=== PATIENT | male | born 1955 | race Caucasian/White ===

== ENCOUNTER 2017-06-19 09:35 | Day surgery (SDC) | payer BC ==
[~2017-06-19 09:35] MED LIST: LACTATED RINGERS 1,000 ML IV SCH; LIDOCAINE 1% 20 ML VIAL (10MG/ML) FOR IV START INTRADERMA PRN
[2017-06-19 10:17] VITALS: RESP 16; TEMP 98.4
[2017-06-19] MEDS ORDERED: PROPOFOL 10 MG/ML 20 ML VIAL IV ONE (11:03)
--- NOTE | 2017-06-19 11:34 | P.PCN ---
Date of Procedure: 06/19/17 Procedure(s) Performed: Procedure: Total colonoscopy. Preoperative diagnosis: Change in bowel habits. Postoperative diagnosis: Diverticulosis with no evidence of acute diverticulitis , strictures, polyps or cancer. Preparation: HalfLytely prep. Sedation: Was provided by anesthesia. Brief clinical history: The patient is a 61-year-old male who is scheduled for this evaluation because of change in bowel habits and caliber of his stools. He has been having worsening constipation over the last few years and recently he is describing his stools to be ribbonlike and pellet-like. His prior exam was in 2008. The patient has no other abdominal complaints, bleeding or anemia. Procedure: With the patient on his left lateral decubitus position and after informed consent and adequate sedation, the perianal area was inspected and it did not show any fissures or fistulas. There were no masses felt on digital rectal examination. The Olympus CFQ 160L video colonoscope was then inserted in the rectum in the usual fashion and advanced to the cecum. There was multiple diverticular orifices seen scattered in the sigmoid with no evidence of acute diverticulitis or strictures. The mucosa appeared healthy. No polyps or tumors were seen. I retroflexed the endoscope in the rectum before the endoscope was withdrawn. The patient tolerated the procedure well. Plan: The patient was reassured. Discussed dietary measures. He will follow up with you as planned and I recommended repeat exam in 10 years. I will be happy to see in the office if his symptoms persist.
[2017-06-19 11:55] VITALS: BP 123/80; PULSE 73
== END 2017-06-19 12:10 | disposition home or self-care (01) ==
LOC: ORWHC2ENDO 09:35
DX: K57.30 Diverticulosis of large intestine without perforation or abscess without bleeding (principal); M19.90 Unspecified osteoarthritis, unspecified site; G25.81 Restless legs syndrome; M54.9 Dorsalgia, unspecified; K21.9 Gastro-esophageal reflux disease without esophagitis; Z79.899 Other long term (current) drug therapy
CPT/HCPCS: 45378; J2704

== ENCOUNTER → 2022-06-23 | Outpatient (CLI) | payer MEDICARE ==
[2022-06-23 20:03] LABS: HCT 44.9 % (39.6-50.0); HGB 14.4 g/dL (13.0-17.0); MCH 30.7 pg (27.0-32.0); MCHC 32.1 g/dL (32.0-37.0); MCV 95.7 fL (80.0-97.0); NRBC Per 100 WBC 0 /100 WBCS (0.0-0.0); Platelet Count 232 X 10*3/uL (140-440); RBC 4.69 X 10*6/uL (4.40-5.60); RDW 12.1 % (11.5-14.5); WBC 5.23 X 10*3/uL (4.50-10.00)
[2022-06-23 20:15] LABS: African American GFR (CKD) 97.8 (60.0-200.0); Anion Gap 9.8 mmol/L (10.00-18.00); BUN/Creat Ratio 25.24 Ratio (12.00-20.00); Blood Urea Nitrogen 23.4 mg/dL (9.0-27.0); Calcium 9.3 mg/dL (8.7-10.3); Carbon Dioxide 25.4 mmol/L (20.0-27.5); Non-African American GFR(CKD) 84.4 (60.0-200.0)
== END | disposition home or self-care (01) ==
LOC: LABWHC1 10:54
PROVIDERS: ATTEND Internal Medicine Cardiovascular Disease
DX: I27.20 Pulmonary hypertension, unspecified (principal); E78.2 Mixed hyperlipidemia; R06.02 Shortness of breath
CPT/HCPCS: 36415; 80048; 84443; 85027

== ENCOUNTER → 2022-08-03 | Outpatient (CLI) | payer MEDICARE ==
--- NOTE | 2022-08-03 17:58 | XR ---
EXAMINATION TYPE: XR chest 2V DATE OF EXAM: 08/03/2022 COMPARISON: None HISTORY: 66-year-old male R06.02, abnormal EKG. TECHNIQUE: Frontal and lateral views FINDINGS: Heart normal size. Aorta and pulmonary vasculature within normal limits. There is hyperinflation with some strandy scarring or atelectasis at the lung bases. Dominant first left anterior rib and likely due to degenerative change at the costochondral junction. [facility] throughout the mid to lower thoracic s pine. IMPRESSION: COPD. Strandy atelectasis or scarring at the lung bases. Otherwise, no acute process seen.
--- NOTE | 2022-08-03 17:59 | NM ---
EXAMINATION TYPE: NM pul vent and perfuse DATE OF EXAM: 08/03/2022 CLINICAL INDICATION: Male, 66 years old with history of R06.02; TECHNIQUE: Utilizing inhalation of 66.2 mCi Tc 99m DTPA aerosol and intravenous injection of 4.0 mCi of Tc 99m MAA, ventilation and perfusion images are acquired post injection in multiple projections. FINDINGS: Normal radiotracer distribution is noted in the lungs. There is no evidence of mismatched defects. IMPRESSION: Very low probability for pulmonary embolus.
== END | disposition home or self-care (01) ==
LOC: RADNMMAIN 12:45
PROVIDERS: ATTEND Internal Medicine Cardiovascular Disease
DX: J44.9 Chronic obstructive pulmonary disease, unspecified (principal); R94.31 Abnormal electrocardiogram [ECG] [EKG]; R06.02 Shortness of breath
CPT/HCPCS: 71046; 78582; A9540; A9567

== ENCOUNTER → 2022-09-05 | Outpatient (CLI) | payer MEDICARE ==
--- NOTE | 2022-09-05 14:15 | XR ---
EXAMINATION TYPE: XR cervical spine limited DATE OF EXAM: 09/05/2022 12:42 PM INDICATION: Patient age:Male; 66 years old; Reason for study: M54.2 CERVICALGIA; COMPARISON: None TECHNIQUE: The cervical spine was imaged in frontal, lateral, and odontoid. FINDINGS: The osseous structures show normal alignment without evidence of an acute fracture. There are minimal osteophytes noted throughout the cervical spine. The intervertebral disk spaces are narrowed at mult iple levels Pedicles are intact. Soft tissues are within normal limits. The odontoid appears intact. IMPRESSION: 1. No fracture or dislocation. 2. Mild degenerative disc disease changes of the cervical spine.
== END | disposition home or self-care (01) ==
LOC: RADXRMAIN 12:26
PROVIDERS: ATTEND Family Medicine
DX: M50.30 Other cervical disc degeneration, unspecified cervical region (principal)
CPT/HCPCS: 72040

== ENCOUNTER → 2023-03-14 | Outpatient (CLI) | payer MEDICARE | END | disposition home or self-care (01) | LOC: LABWHC1 14:35 | PROVIDERS: ATTEND Family Medicine | DX: G62.9 Polyneuropathy, unspecified (principal) | CPT/HCPCS: 36415; 82747 ==

== ENCOUNTER → 2023-09-17 | Outpatient (CLI) | payer MEDICARE ==
--- NOTE | 2023-09-17 12:24 | XR ---
EXAMINATION TYPE: XR ankle limited LT DATE OF EXAM: 09/17/2023 COMPARISON: NONE HISTORY: Pain TECHNIQUE: 2 views of the left ankle are submitted for evaluation. FINDINGS: There is no evidence for fracture or dislocation. Ankle mortise is intact. Soft tissues are within normal limits. IMPRESSION: 1. No evidence for acute fracture.
== END | disposition home or self-care (01) ==
LOC: RADXRMAIN 12:03
PROVIDERS: ATTEND Family Medicine
DX: M25.572 Pain in left ankle and joints of left foot (principal)

== ENCOUNTER → 2024-01-18 | Outpatient (CLI) | payer MEDICARE ==
--- NOTE | 2024-01-18 16:06 | CT ---
EXAMINATION TYPE: CT ankle LT wo con CT DLP: 244.7 mGycm, Automated exposure control for dose reduction was used. DATE OF EXAM: 01/18/2024 3:53 PM COMPARISON: Left ankle radiograph 09/17/2023 CLINICAL INDICATION:Male, 68 years old with history of M19.072 PRIMARY OSTEOARTHRITIS, LEFT ANKLE AND FOOT; PHH, Left ankle pain since March, no injury. TECHNIQUE: Axial images were obtained of the left ankle without the use of IV contrast. Additional c oronal and sagittal reformatted images and soft tissue and bone window were obtained for review. FINDINGS: There is no evidence of fracture, subluxation, or dislocation. There is subchondral cystic infiltration with sclerosis involving the talocalcaneal junction with joint space gas. Ankle mortise is intact. No significant subchondral sclerosis or cyst cysts of the tibiotalar joint. Mild dorsal mi dfoot spurring. Small benign bone island within the calcaneus. Small plantar calcaneal enthesophytes. Mild diffuse soft tissue edema of the ankle. No focal muscular atrophy. Incidental os navicular. No radiopaque foreign body identified. Prominent venous vasculature within the soft tissues suggesting v aricose veins. IMPRESSION: 1. No acute fracture or dislocation. 2. Moderate degenerative changes of the talocalcaneal joint. 3. Mild soft tissue swelling ankle. 4. Small plantar calcaneal enthesophyte. [facility], , 01/18/2024 4:03 PM
== END | disposition home or self-care (01) ==
LOC: RADCTMAIN 15:26
PROVIDERS: ATTEND Podiatrist
DX: M19.072 Primary osteoarthritis, left ankle and foot (principal); M77.32 Calcaneal spur, left foot

== ENCOUNTER → 2024-03-24 | Outpatient (CLI) | payer MEDICARE | END | disposition home or self-care (01) | LOC: LABWHC1 11:52 | PROVIDERS: ATTEND Family Medicine | DX: E78.5 Hyperlipidemia, unspecified (principal); Q55.1 Hypoplasia of testis and scrotum | CPT/HCPCS: 36415 ==

== ENCOUNTER → 2024-05-05 | Outpatient (CLI) | payer MEDICARE ==
[2024-05-06] LABS: Alternaria alternata IgE <0.10 kU/L; Aspergillus fumagatus IgE <0.10 kU/L; Birch IgE <0.10 kU/L; Cat Epith & Dander IgE 0.66 kU/L; Cladosporian herbarum IgE <0.10 kU/L; Cockroach IgE <0.10 kU/L; Dermato. farinae IgE <0.10 kU/L; Dog Dander IgE <0.10 kU/L; Elm IgE <0.10 kU/L; Maple (Box Elder) IgE <0.10 kU/L; Oak IgE <0.10 kU/L; Ragweed,Common IgE <0.10 kU/L; Red Top (Bentgrass) IgE <0.10 kU/L
== END | disposition home or self-care (01) ==
LOC: LABWHC1 15:20
PROVIDERS: ATTEND Otolaryngology
DX: J30.89 Other allergic rhinitis (principal); B44.89 Other forms of aspergillosis
CPT/HCPCS: 36415; 82785; 86003

== ENCOUNTER → 2024-05-19 | Outpatient (CLI) | payer MEDICARE ==
--- NOTE | 2024-05-19 13:24 | CT ---
EXAMINATION TYPE: CT sinus wo con DATE OF EXAM: 05/19/2024 COMPARISON: NONE CLINICAL INDICATION: Male, 68 years old with history of J32.0 CHRONIC MAXILLARY SINUSITIS, Chronic ma xillary sinusitis., TECHNIQUE: CT scan of the sinuses performed without contrast, patient injected with mL of .(none if empty) CT DLP: 483.5 mGycm, Automated exposure control for dose reduction was used. TECHNIQUE: CT scan of the sinuses is performed without contrast, axial images are obtained, coronal r eformatted images are also reviewed. FINDINGS: The paranasal sinuses including the frontal, ethmoid, sphenoid, and maxillary sinuses bila terally are well-aerated without abnormal opacification or suspicious air-fluid levels. The ostiomea chuck complex is patent bilaterally on the coronal images. Visualized portion of mastoid air cells show no abnormal opacification. Bilateral aphakia is seen. IMPRESSION: The paranasal sinuses are clear and the ostiomeatal complex is patent bilaterally. [facility], , 05/19/2024 1:21 PM
== END | disposition home or self-care (01) ==
LOC: RADCTMAIN 11:43
PROVIDERS: ATTEND Otolaryngology
DX: J32.0 Chronic maxillary sinusitis (principal); H27.03 Aphakia, bilateral
CPT/HCPCS: 70486

== ENCOUNTER 2024-07-09 08:39 | Day surgery (SDC) | payer MEDICARE ==
[~2024-07-09 08:39] MED LIST changes: +HYDROmorphone 0.5 MG/0.5 ML SYRINGE IVP PRN; -LACTATED RINGERS 1,000 ML IV SCH; -LIDOCAINE 1% 20 ML VIAL (10MG/ML) FOR IV START INTRADERMA PRN; +fentaNYL (PF) 50 MCG/ML 2 ML AMP IV PRN
[2024-07-09] MEDS: OXYMETAZOLINE 0.05% NASL SPRAY 1 SPRAY BOTTLE EA NOSTRIL PRN (09:17)
[2024-07-09] MEDS: IV FLUID CONTINUATION 1,000 ML IV ONE (09:20)
[2024-07-09] MEDS: LACTATED RINGERS 1,000 ML IV SCH (09:20)
[2024-07-09] MEDS: LIDOCAINE 1% (10MG/ML) FOR IV START INTRADERMA STA (09:20)
[2024-07-09] MEDS: DEXAMETHASONE SOD PHOSPHATE 4 MG/ML 1 ML VIAL IV ONE (09:33)
[2024-07-09] MEDS: FAMOTIDINE 20 MG/2 ML VIAL IV PRN (09:33)
[2024-07-09] MEDS: ONDANSETRON 4 MG/2 ML VIAL IVP ONE (09:33)
[2024-07-09 09:49] LABS: Glucose,Whole Blood 101 mg/dL (70-110)
[2024-07-09] MEDS ORDERED: MIDAZOLAM 2 MG/2 ML VIAL ONE (10:07)
[2024-07-09] MEDS ORDERED: PROPOFOL 10 MG/ML 20 ML VIAL IV ONE (10:07)
[2024-07-09] MEDS ORDERED: PHENYLEPHRINE-0.9% NACL SYG 1,000 MCG/10 ML SYRINGE ONE (10:07)
[2024-07-09] MEDS ORDERED: LIDOCAINE 1% INJ 10MG/ML (20 ML MDV) ONE (10:07)
[2024-07-09] MEDS ORDERED: ROCURONIUM 10 MG/ML (5 ML VIAL) IV ONE (10:07)
[2024-07-09] MEDS ORDERED: LIDOCAINE 4% LTA KIT (4 ML) TOPICAL ONE (10:07)
[2024-07-09] MEDS ORDERED: ePHEDrine 50 MG/ML 1 ML VIAL ONE (10:07)
[2024-07-09] MEDS ORDERED: fentaNYL (PF) 50 MCG/ML 2 ML AMP ONE (10:07)
[2024-07-09] MEDS ORDERED: SUCCINYLCHOLINE CHLORIDE 200 MG/10 ML VIAL IV ONE (10:07)
[2024-07-09] MEDS: BACITRACIN ZINC 500 UNIT/GM OINT 28.4 GM TUBE TOPICAL ONE ×3 (10:08→10:52)
[2024-07-09] MEDS: LIDOCAINE 1%-EPI 1:100,000 20 ML VIAL SUBMUCOSAL ONE ×3 (10:08→10:28)
[2024-07-09] MEDS: ceFAZolin 3 GM in SODIUM CHLORIDE 0.9% 100 ML IVPB PRN (10:12)
[2024-07-09] MEDS: LACTATED RINGERS 1,000 ML IV ONE (10:49)
--- NOTE | 2024-07-09 10:58 | P.OP ---
Date of Procedure: 07/09/24 Preoperative Diagnosis: deviated nasal septum Inferior turbinate hypertrophy Postoperative Diagnosis: same Procedure(s) Performed: septoplasty Outfracture and submucous resection of the inferior turbinates Anesthesia: BANDARA Surgeon: Theo Helm Estimated Blood Loss (ml): 5 Pathology: other (nasal septal bone and cartilage) Indications for Procedure: is a 68-year-old white male whose had difficulties with chronic nasal airway obstruction and congestion which has not improved particularly well with medical management Operative Findings: nasal septum is deviated to the left with inferior turbinate hypertrophy Description of Procedure: DESCRIPTION OF PROCEDURE: The patient was brought to the operative suite, placed in the supine position. The patient underwent induction of general anesthesia with oral endotracheal intubation without difficulty. The patient was prepped and draped in the usual aseptic fashion. 1% lidocaine with 1:100,000 epinephrine was infused submucosally on both sides of the nasal septum. While this was taking vasoconstrictive effect, the inferior turbinates were infractured with a [place] elevator. Partial submucous resection of the inferior turbinates was performed with Coblation device ablating a portion of the submucosal soft tissue. The inferior turbinates were then outfractured with a [place] elevator. A left hemitransfixion incision was then made through the mucoperichondrial. Mucoperiosteal flap on the left elevated. Bony cartilaginous junction was disarticulated and mucoperiosteal flap on the right was elevated. Bony nasoseptal deformity were removed with Laura forceps and an inferior cartilaginous strip was removed, leaving a full 1.5 cm caudal strut. Checking intranasally, this corrected the nasal septal deformities and the hemitransfixion incision was closed with running 4-0 chromic suture. The bilateral Johns airway splints coated in bacitracin ointment were placed in the nasal cavities and sutured transseptally with 4-0 nylon suture. The patient was then suctioned in an orogastric fashion. The patient was allowed to emerge from general anesthesia, having tolerated the procedure well and was extubated in the operating suite, transferred to postoperative recovery area in satisfactory condition.
[2024-07-09 11:10] VITALS: TEMP 97.3
[2024-07-09 12:00] VITALS: RESP 16
[2024-07-09 12:14] VITALS: BP 144/85; PULSE 62
== END 2024-07-09 12:27 | disposition home or self-care (01) ==
LOC: OR 08:39
PROVIDERS: ATTEND Otolaryngology
DX: J34.2 Deviated nasal septum (principal); J34.3 Hypertrophy of nasal turbinates; I10 Essential (primary) hypertension; I25.10 Atherosclerotic heart disease of native coronary artery without angina pectoris; E78.5 Hyperlipidemia, unspecified; J30.89 Other allergic rhinitis; E66.9 Obesity, unspecified; Z68.34 Body mass index [BMI] 34.0-34.9, adult; Z79.2 Long term (current) use of antibiotics; Z79.899 Other long term (current) drug therapy
CPT/HCPCS: 30140; 30520; J2250; J0330; J1100; J0690; J2405; J2003; J3010; J2704; J2371; J1308; 88300

== ENCOUNTER 2024-08-02 07:31 | Inpatient (IN) | payer MEDICARE ==
--- NOTE | 2024-08-02 07:58 | ED ---
General Adult HPI - General Chief complaint: Syncope Stated complaint: syncopal episode Time Seen by Provider: 08/02/24 07:32 Source: patient, EMS, RN notes reviewed Mode of arrival: EMS Limitations: no limitations - History of Present Illness Initial comments: Patient is a 68-year-old male presenting to the emergency department with concern with syncopal episode. Episode occurred prior to arrival while walking the dog. Patient felt fine and then suddenly felt dizzy and passed out. Patient was sweaty and nauseated and did vomit. Patient has mild chest discomfort which is described as pressure left upper chest 3/10 without radiation. Patient did have some associated dyspnea. Patient states symptoms are minimal at this point. No history of similar symptoms previously. - Related Data Home Medications Medication Instructions Recorded Confirmed Atorvastatin Calcium 20 mg PO HS 07/09/24 08/02/24 Cholecalciferol (Vitamin D3) 50 mcg PO DAILY 08/02/24 08/02/24 [Vitamin D3 (50 Mcg = 2000 Iu)] Allergies Allergy/AdvReac Type Severity Reaction Status Date / Time No Known Allergies Allergy Verified 08/02/24 09:11 Review of Systems ROS Statement: Those systems with pertinent positive or pertinent negative responses have been documented in the HPI. ROS Other: All systems not noted in ROS Statement are negative. Constitutional: Denies: fever Eyes: Denies: eye pain ENT: Denies: ear pain Respiratory: Reports: as per HPI Cardiovascular: Reports: as per HPI, chest pain Endocrine: Denies: fatigue Gastrointestinal: Reports: nausea, vomiting. Denies: abdominal pain Musculoskeletal: Denies: back pain Neurological: Denies: headache, weakness, confusion Past Medical History Past Medical History: Osteoarthritis (OA) Additional Past Medical History / Comment(s): CURRENT: LOWER ABD PAIN. RESTLESS LEG. LOWER BACK/HIPS PAIN. History of Any Multi-Drug Resistant Organisms: None Reported Past Surgical History: Hernia Repair, Tonsillectomy Additional Past Surgical History / Comment(s): BILATERAL INGUINAL HERNIA Past Anesthesia/Blood Transfusion Reactions: Motion Sickness, Postoperative Nausea & Vomiting (PONV) Past Psychological History: No Psychological Hx Reported Past Alcohol Use History: Rare Past Drug Use History: None Reported General Exam Limitations: no limitations General appearance: alert Head exam: Present: normocephalic Eye exam: Present: normal appearance, PERRL, EOMI ENT exam: Present: normal exam Neck exam: Present: normal inspection. Absent: tenderness, meningismus Respiratory exam: Present: normal lung sounds bilaterally Cardiovascular Exam: Present: tachycardia, normal heart sounds Expanded Peripheral pulses: 2+: Radial (R), Radial (L), Posterior Tibialis (R), Posterior Tibialis (L) GI/Abdominal exam: Present: soft. Absent: distended, tenderness, guarding, rebound, rigid, pulsatile mass Extremities exam: Present: normal inspection. Absent: pedal edema, calf tenderness Neurological exam: Present: alert, oriented X3, CN II-XII intact. Absent: motor sensory deficit Expanded Neurological exam: Present: protecting the airway Speech: Present: fluid speech Cranial nerves: EOM's Intact: Normal Sensory exam: Upper Extremity Light Touch: Normal, Lower Extremity Light Touch: Normal Motor strength exam: RUE: 5, LUE: 5, RLE: 5, LLE: 5 Eye Response: (4) open spontaneously Motor Response: (6) obeys commands Verbal Response: (5) oriented Psychiatric exam: Present: normal affect, normal mood Skin exam: Present: normal color Course Vital Signs 08/02/24 08/02/24 08/02/24 07:45 08:28 08:57 Temperature 97.7 F Pulse Rate 115 H 116 H 123 H Respiratory 20 18 Rate Blood Pressure 84/36 102/73 112/82 O2 Sat by Pulse 90 L 94 L 96 Oximetry - Reevaluation(s) Reevaluation #1: 08/02/24 08:18 Original phone call did not go through. Dr. Goss paged again. 08/02/24 08:29 Dr. Puentes not available at this time, will call back. Patient's most recent blood pressures have been 102 and 105. Therefore decision has been made to start high dose heparin over thrombolytics at this time. 08/02/24 08:47 Case was discussed with Dr. Puentes who agrees not a candidate for tPA. He does recommend calling vascular regarding possible clot thrombectomy. Vascular surgery has been paged. EKG Findings - EKG Results: EKG: interpreted by ERMShabnam (Narrow complex tachycardia, regular. Incomplete right bundle branch block. Borderline ST depression in lead II and lateral.), normal axis Medical Decision Making - Medical Decision Making Patient had a near syncopal event while in CT scan. Patient became very diaphoretic. Patient did maintain pulse throughout the event. Event lasted 1 or 2 minutes. Was pt. sent in by a medical professional or institution (, JUSTINO, HUSBANDRY PERSON, urgent care, hospital, or [facility]...) When possible be specific @ -No Did you speak to anyone other than the patient for history (EMS, parent, family, police, friend...)? What history was obtained from this source @ -EMS reports that patient is hypotensive Did you review nursing and triage notes (agree or disagree)? Why? @ -I reviewed and agree with nursing and triage notes Were old charts reviewed (outside hosp., previous admission, EMS record, old EKG, old radiological studies, urgent care reports/EKG's, [facility] records)? Report findings @ -No old charts were reviewed Differential Diagnosis (chest pain, altered mental status, abdominal pain women, abdominal pain men, vaginal bleeding, weakness, fever, dyspnea, syncope, headache, dizziness, GI bleed, back pain, seizure, CVA, palpatations, mental health, musculoskeletal)? @ -Differential Syncope: Valvular disease, hypertrophic cardiomyopathy, pulmonary embolism, tamponade, tachycardia, bradycardia, NE, hypovolemia, hemorrhage, dissection, anemia, intracranial hemorrhage, seizure, hypoglycemia, carbon monoxide poisoning, this is not meant to be an all-inclusive list. EKG interpreted by me (3pts min.). @ -As above X-rays interpreted by me (1pt min.). @ -None done CT interpreted by me (1pt min.). @ -CT chest shows large bilateral central embolism without saddle embolism. U/S interpreted by me (1pt. min.). @ -None done What testing was considered but not performed or refused? (CT, X-rays, U/S, labs)? Why? @ -None What meds were considered but not given or refused? Why? @ -None Did you discuss the management of the patient with other professionals (professionals i.e. , JUSTINO, HUSBANDRY PERSON, lab, RT, psych nurse, social services manager, wall steamer, teacher, commanding officer garage, geriatric case manager)? Give summary @ -See above. Sound physician Dr. Lloyd covering for Dr. Quintero who will admit and does request consult with cardiology and pulmonary Was smoking cessation discussed for >3mins.? @ -No Was critical care preformed (if so, how long)? @ -33 minutes critical care time Were there social determinants of health that impacted care today? How? (Homelessness, low income, unemployed, alcoholism, drug addiction, transportation, low edu. Level, literacy, decrease access to med. care, halfway, rehab)? @ -No Was there de-escalation of care discussed even if they declined (Discuss DNR or withdrawal of care, Hospice)? DNR status @ -No What co-morbidities impacted this encounter? (DM, HTN, Smoking, COPD, CAD, Cancer, CVA, ARF, Chemo, Hep., AIDS, mental health diagnosis, sleep apnea, morbid obesity)? @ -Patient does add that he had nasal septal surgery done 3 weeks ago Was patient admitted / discharged? Hospital course, mention meds given and route, prescriptions, significant lab abnormalities, going to OR and other pertinent info. @ -Patient presents with syncopal episode followed by near syncopal episode in the ER. Patient is tachycardic and hypotensive with chest discomfort. CT scan concerning for pulmonary embolism. Patient will be admitted. IV heparin started. Patient and family updated. Admission orders written. Undiagnosed new problem with uncertain prognosis? @ -No Drug Therapy requiring intensive monitoring for toxicity (Heparin, Nitro, Insulin, Cardizem)? @ -No Were any procedures done? @ -No Diagnosis/symptom? @ -Submassive pulmonary embolism, syncope Acute, or Chronic, or Acute on Chronic? @ -Acute, acute Uncomplicated (without systemic symptoms) or Complicated (systemic symptoms)? @ -Complicated with some possible mild heart strain Side effects of treatment? @ -No Exacerbation, Progression, or Severe Exacerbation? @ -No Poses a threat to life or bodily function? How? (Chest pain, USA, NE, pneumonia, PE, COPD, DKA, ARF, appy, cholecystitis, CVA, Diverticulitis, Homicidal, Suicidal, threat to staff... and all critical care pts) @ -Threat to cardiac and pulmonary function - Lab Data Result diagrams: 08/02/24 07:36 08/02/24 07:36 Lab Results 08/02/24 08/02/24 08/02/24 Range/Units 07:36 07:36 07:36 WBC 6.77 (4.50-10.00) 10*3/uL RBC 4.63 (4.40-5.60) 10*6/uL Hgb 14.5 (13.0-17.0) g/dL Hct 42.8 (39.6-50.0) % MCV 92.4 (80.0-97.0) fL MCH 31.3 (27.0-32.0) pg MCHC 33.9 (32.0-37.0) g/dL Plt Count 192 (140-440) 10*3/uL MPV 10.0 (9.5-12.2) fL Immature Gran % (Auto) 0.1 % Neutrophils % 60.6 % Lymphocytes % 25.7 % Monocytes % 8.6 % Eosinophils % 4.0 % Basophils % 1.0 % Immature Gran # 0.01 (0.00-0.04) 10*3/uL Neutrophils # 4.10 (1.80-7.70) 10*3/uL Lymphocytes # 1.74 (0.90-5.00) 10*3/uL Monocytes # 0.58 (0.20-1.00) 10*3/uL Eosinophils # 0.27 (0.04-0.35) 10*3/uL Basophils # 0.07 (0.00-0.10) 10*3/uL PT 11.8 (10.0-12.5) sec INR 1.1 (<1.2) APTT 23.9 (22.0-30.0) sec D-Dimer 7.92 H (<0.60) mg/L FEU Sodium 135 L (137-145) mmol/L Potassium 4.4 (3.5-5.1) mmol/L Chloride 108 H (98-107) mmol/L Carbon Dioxide 14 L (22-30) mmol/L Anion Gap 13 mmol/L BUN 18 (9-20) mg/dL Creatinine 0.81 (0.66-1.25) mg/dL Est GFR (CKD-EPI)AfAm >90 (>60 ml/min/1.73 sqM) Est GFR (CKD-EPI)NonAf >90 (>60 ml/min/1.73 sqM) Glucose 145 H (74-99) mg/dL Calcium 8.3 L (8.4-10.2) mg/dL Magnesium 1.9 (1.6-2.3) mg/dL Total Bilirubin 1.0 (0.2-1.3) mg/dL AST 28 (17-59) U/L ALT 23 (4-49) U/L Alkaline Phosphatase 77 (38-126) U/L Troponin I (0.000-0.034) ng/mL NT-Pro-B Natriuret Pep 430 pg/mL Total Protein 6.9 (6.3-8.2) g/dL Albumin 3.9 (3.5-5.0) g/dL 08/02/24 Range/Units 07:36 WBC (4.50-10.00) 10*3/uL RBC (4.40-5.60) 10*6/uL Hgb (13.0-17.0) g/dL Hct (39.6-50.0) % MCV (80.0-97.0) fL MCH (27.0-32.0) pg MCHC (32.0-37.0) g/dL Plt Count (140-440) 10*3/uL MPV (9.5-12.2) fL Immature Gran % (Auto) % Neutrophils % % Lymphocytes % % Monocytes % % Eosinophils % % Basophils % % Immature Gran # (0.00-0.04) 10*3/uL Neutrophils # (1.80-7.70) 10*3/uL Lymphocytes # (0.90-5.00) 10*3/uL Monocytes # (0.20-1.00) 10*3/uL Eosinophils # (0.04-0.35) 10*3/uL Basophils # (0.00-0.10) 10*3/uL PT (10.0-12.5) sec INR (<1.2) APTT (22.0-30.0) sec D-Dimer (<0.60) mg/L FEU Sodium (137-145) mmol/L Potassium (3.5-5.1) mmol/L Chloride (98-107) mmol/L Carbon Dioxide (22-30) mmol/L Anion Gap mmol/L BUN (9-20) mg/dL Creatinine (0.66-1.25) mg/dL Est GFR (CKD-EPI)AfAm (>60 ml/min/1.73 sqM) Est GFR (CKD-EPI)NonAf (>60 ml/min/1.73 sqM) Glucose (74-99) mg/dL Calcium (8.4-10.2) mg/dL Magnesium (1.6-2.3) mg/dL Total Bilirubin (0.2-1.3) mg/dL AST (17-59) U/L ALT (4-49) U/L Alkaline Phosphatase (38-126) U/L Troponin I 0.048 H* (0.000-0.034) ng/mL NT-Pro-B Natriuret Pep pg/mL Total Protein (6.3-8.2) g/dL Albumin (3.5-5.0) g/dL Critical Care Time Critical Care Time: Yes Disposition Clinical Impression: Pulmonary embolism Disposition: ADMITTED IP TO THIS HOSP Is patient prescribed a controlled substance at d/c from ED?: No Time of Disposition: 08:31
[2024-08-02] MEDS: SODIUM CHLORIDE 0.9% 1,000 ML IV STA (08:12)
[2024-08-02] MEDS: ASPIRIN 81 MG PO STA (08:12)
--- NOTE | 2024-08-02 08:15 | CT ---
EXAMINATION TYPE: CT angio chest DATE OF EXAM: 08/02/2024 8:03 AM COMPARISON: None. CLINICAL INDICATION: Male, 68 years old with history of mercy, syncope, [facility], Syncope, TECHNIQUE: CT of the chest is performed on a spiral scan at 2 mm thick sections. Study is performed with intravenous contrast timed for evaluation for pulmonary embolism. This will limit additional po rtions of the evaluation. 10mm MIP images reconstructed by the technologist are reviewed on the comp uter in the coronal and sagittal planes. Contrast used:100 ml mL of Isovue 370 without and with IV Contrast, (none if empty) Oral contrast used: (none if empty) CT DLP: 558.5 mGycm, Automated exposure control for dose reduction was used. FINDINGS: Large central pulmonary emboli are within the first pulmonary arteries off the main pulmonary arterie s bilaterally. Minimal reflux into the inferior vena cava is present. Septum appears normal. Mild r ight heart strain may be present. No mediastinal or hilar adenopathy enlarged by CT criteria is evident. The ascending aorta diameter at the level of the main pulmonary artery is 3.1 cm. The main pulmonary artery diameter at the bifurcation is 3.2 cm. Lung windows are clear. No significant coronary artery calcifications. Limited CT sections were through the upper abdomen. Upper abdomen appears unremarkable. IMPRESSION: 1. Large bilateral primary pulmonary artery pulmonary emboli. Some minimal right heart strain may be present. Report was called to the emergency room by Dr. Elias by telephone at the time of interpret ation 0808 hours 08/02/2024. [facility], , 08/02/2024 8:13 AM
[2024-08-02 08:21] LABS: Basophils # (A) 0.07 10*3/uL (0.00-0.10); Eosinophils # (A) 0.27 10*3/uL (0.04-0.35); HCT 42.8 % (39.6-50.0); HGB 14.5 g/dL (13.0-17.0); Lymphocytes # (A) 1.74 10*3/uL (0.90-5.00); Lymphocytes % (A) 25.7 %; MCH 31.3 pg (27.0-32.0); MCHC 33.9 g/dL (32.0-37.0); MCV 92.4 fL (80.0-97.0); Monocytes # (A) 0.58 10*3/uL (0.20-1.00); Monocytes % (A) 8.6 %; Neutrophils % (A) 60.6 %; Platelet Count 192 10*3/uL (140-440); RBC 4.63 10*6/uL (4.40-5.60); RDW 12.3 % (11.5-14.5); WBC 6.77 10*3/uL (4.50-10.00)
[2024-08-02] MEDS ORDERED: HEPARIN SODIUM 1,000 UN/ML (10ML VL) IV PRN (08:28)
[2024-08-02] MEDS ORDERED: NALOXONE 0.4 MG/ML 1 ML VIAL IV PRN (08:34)
[2024-08-02 08:40] LABS: ALT 23 U/L (4-49); African American GFR (CKD) >90 (>60 ml/min/1.73 sqM); Albumin 3.9 g/dL (3.5-5.0); Anion Gap 13 mmol/L; Blood Urea Nitrogen 18 mg/dL (9-20); Calcium 8.3 mg/dL (8.4-10.2); Carbon Dioxide 14 mmol/L (22-30); Chloride 108 mmol/L (98-107); Glucose 145 mg/dL (74-99); Non-African American GFR(CKD) >90 (>60 ml/min/1.73 sqM); Sodium 135 mmol/L (137-145); Total Protein 6.9 g/dL (6.3-8.2)
[2024-08-02] MEDS: HEPARIN SODIUM 1,000 UN/ML (10ML VL) IV ONE (08:44)
[2024-08-02] MEDS: HEPARIN SOD,PORK IN 0.45% NACL 25,000 UNIT in 0.45% NACL 1 250ML.BAG IV SCH (08:45)
[2024-08-02 08:48] LABS: INR 1.1 (<1.2); NT-Pro-B-Type Natriuretic Pept 430 pg/mL; Partial Thromboplastin Time 23.9 sec (22.0-30.0); Prothrombin Time 11.8 sec (10.0-12.5)
[2024-08-02] MEDS: SODIUM CHLORIDE 0.9% 500 ML IV STA (08:54)
[2024-08-02] MEDS: SODIUM CHLORIDE 0.9% 1,000 ML IV SCH ×2 (08:56→21:29)
[2024-08-02 08:58] LABS: AST 28 U/L (17-59); Alkaline Phosphatase 77 U/L (38-126); Magnesium 1.9 mg/dL (1.6-2.3); Potassium 4.4 mmol/L (3.5-5.1)
[2024-08-02] MEDS: FAMOTIDINE 20 MG TAB PO SCH (09:18)
[2024-08-02] MEDS: IV FLUID CONTINUATION 1,000 ML IV ONE (10:20)
[2024-08-02] MEDS: LIDOCAINE 1% INJ 10MG/ML (20 ML MDV) SQ ONE (10:34)
[2024-08-02] MEDS: HEPARIN SODIUM 1,000 UN/ML (10ML VL) IVP ONE (11:21)
--- NOTE | 2024-08-02 11:50 | P.CNPUL ---
History of Present Illness Consult date: 08/02/24 Reason for consult: pulmonary embolism History of present illness: On 08/02/2024, the patient is seen in the emergency department for acute pulmonary embolism. The patient has a strong family history of pulm embolism. I have treated this patient's mother approximately 6 years ago for an acute pulmonary embolism. The patient was doing well and the patient while will walking his dog today, felt acute shortness of breath and he felt also dizzy. He came into the Emergency Department and [address] scan of the chest in the emergency de [facility], the patient felt dizzy and near the brief episode of syncope. He is free of any chest pain. No pleurisy. No hemoptysis. He has chronic varicose veins and edema in lower extremities specially on the left. No previous history of DVT or pulmonary embolism. D-dimer is at 7.5. Troponin is at 0.04. proBNP level is at 430. CT angiogram of the chest was done and the patient has evidence of large bilateral pulmonary artery emboli and some minimal right ventricular strain has been reported. Case was discussed with vascular surgeon the patient is going to undergo a clot thrombectomy. The ventricles of 6.7 with a hemoglobin of 14.5 and a platelet count of 192. Rest of the electrolytes show a component of non-anion gap metabolic acidosis with a serum bicarb of 14. Sodium is at 135. BUN is 18 with a creatinine of 0.8. LFTs are normal. Patient is IV Heparin. The EKG Showed a Atrial Flutters/Tachycardia Initially and the Patient Continues to Be in Sinus Tachycardia at This Point. The Patient Has an Incomplete Right Bundle Branch Block Pattern. No History of Travel. The Patient Has Undergone Recent Sinus Surgery Approximately 3 Weeks Ago. Review of Systems Constitutional: Reports as per HPI Eyes: denies as per HPI, denies blurred vision, denies bulging eye, denies decreased vision, denies diplopia, denies discharge, denies dry eye, denies irritation, denies itching, denies pain, denies photophobia, denies loss of peripheral vision, denies loss of vision, denies tunnel vision/blind spots Ears: deny: decreased hearing, ear discharge, earache, tinnitus Ears, nose, mouth and throat: Reports as per HPI Breasts: absent: as per HPI, gynecomastia Cardiovascular: Reports decreased exercise tolerance, Reports dyspnea on exertion, Reports leg edema, Reports syncope Respiratory: Reports as per HPI Gastrointestinal: Reports as per HPI Genitourinary: Reports as per HPI Musculoskeletal: Reports as per HPI Musculoskeletal: absent: ankle pain, ankle stiffness, ankle swelling, as per HPI, elbow pain, elbow stiffness, elbow swelling, foot pain, foot stiffness, foot swelling, hand pain, hand stiffness, hand swelling, hip pain, hip stiffness, hip swelling, knee pain, knee stiffness, knee swelling, shoulder pain, shoulder stiffness, shoulder swelling, wrist pain, wrist stiffness, wrist swelling Integumentary: Reports as per HPI Neurological: Reports as per HPI Psychiatric: Reports as per HPI Endocrine: Reports as per HPI Hematologic/Lymphatic: Reports as per HPI Allergic/Immunologic: Reports as per HPI Past Medical History Past Medical History: Osteoarthritis (OA) Additional Past Medical History / Comment(s): CURRENT: LOWER ABD PAIN. RESTLESS LEG. LOWER BACK/HIPS PAIN. History of Any Multi-Drug Resistant Organisms: None Reported Past Surgical History: Hernia Repair, Tonsillectomy Additional Past Surgical History / Comment(s): BILATERAL INGUINAL HERNIA Past Anesthesia/Blood Transfusion Reactions: Motion Sickness, Postoperative Nausea & Vomiting (PONV) Past Psychological History: No Psychological Hx Reported Past Alcohol Use History: Rare Past Drug Use History: None Reported Medications and Allergies Home Medications Medication Instructions Recorded Confirmed Type Atorvastatin Calcium 20 mg PO HS 07/09/24 08/02/24 History Cholecalciferol (Vitamin D3) 50 mcg PO DAILY 08/02/24 08/02/24 History [Vitamin D3 (50 Mcg = 2000 Iu)] Allergies Allergy/AdvReac Type Severity Reaction Status Date / Time No Known Allergies Allergy Verified 08/02/24 09:11 Physical Exam Vitals: Vital Signs Temp Pulse Resp BP Pulse Ox 08/02/24 08:57 123 H 18 112/82 96 08/02/24 08:28 116 H 102/73 94 L 08/02/24 07:45 97.7 F 115 H 20 84/36 90 L Intake and Output 08/01/24 08/02/24 08/02/24 22:59 06:59 14:59 Other: Weight 127.006 kg The patient appeared well nourished and normally developed. Vital signs as documented. [facility]. BMI 35.0. Head exam is unremarkable. No scleral icterus or corneal arcus noted. Neck is without jugular venous distension, thyromegaly, or carotid bruits. Carotid upstrokes are brisk bilaterally. Lungs are clear to auscultation and percussion. Cardiac exam reveals the PMI to be normally sized and situated. Rhythm is regular. First and second heart sounds normal. No murmurs, rubs or gallops. Patient has tachycardia. Abdominal exam reveals normal bowel sounds, no masses, no organomegaly and no aortic enlargement. Extremities show an edematous left lower extremity and varicose veins compared to the right and both femoral and pedal pulses are normal. Examination of the skin revealed no evidence of significant rashes, suspicious appearing nevi or other concerning lesions. Neurologically, the patient is awake and alert and the patient does not have any focal neurological deficit. Cranial nerves are essentially intact. Results - Laboratory Findings CBC and BMP: 08/02/24 07:36 08/02/24 07:36 PT/INR, D-dimer PT 11.8 sec (10.0-12.5) 08/02/24 07:36 INR 1.1 (<1.2) 08/02/24 07:36 D-Dimer 7.92 mg/L FEU (<0.60) H 08/02/24 07:36 Abnormal lab findings: Abnormal Labs 08/02/24 08/02/24 08/02/24 07:36 07:36 07:36 D-Dimer 7.92 H Sodium 135 L Chloride 108 H Carbon Dioxide 14 L Glucose 145 H Calcium 8.3 L Troponin I 0.048 H* - Diagnostic Findings CT scan - chest: image reviewed Assessment and Plan Plan: Acute bilateral pulmonary embolism, unprovoked. Positive family history for pulmonary embolism. The patient encountered syncope. The patient is not atrial tachycardia/sinus tachycardia with mild RV strain as noted on the CTA of the chest Acute syncope, brief with no significant cardiac arrhythmias. The patient has normal mentation and his neurologic exam is nonfocal and is awake and alert. Sinus tachycardia/atrial tachycardia/a flutter, likely related to above None anion gap metabolic acidosis Troponin leak secondary to above Acute dyspnea secondary to above Chronic varicosities in the left lower extremity with chronic edema in the left lower extremity. Rule out underlying DVT Plan Continue IV heparin Obtain Doppler of the left lower extremity and right lower extremity Obtain echocardiogram to assess RV strain and PA pressures Discussed the case with vascular surgery. Based on his symptoms, the patient will be candidate for clot thrombectomy this will be done today and following that the patient be transferred to the ICU for further monitoring. Will deserve a hypercoagulable evaluation at a later stage based on his strong family history for pulmonary embolism. Placed the patient on telemetry MRI of the cardiac rhythm Will continue to follow Time with Patient: Greater than 30
[2024-08-02] MEDS: PHENYLEPHRINE 10 MG/ML VIAL IV ONE (11:54)
[2024-08-02 12:15] LABS: Basophils # (A) 0.01 10*3/uL (0.00-0.10); Basophils % (A) 0.3 %; Eosinophils # (A) 0.01 10*3/uL (0.04-0.35); Eosinophils % (A) 0.3 %; Lymphocytes # (A) 0.32 10*3/uL (0.90-5.00); Lymphocytes % (A) 10.8 %; MCH 31.6 pg (27.0-32.0); MCHC 32.5 g/dL (32.0-37.0); MCV 97.4 fL (80.0-97.0); Mean Platelet Volume 9.6 fL (9.5-12.2); Monocytes # (A) 0.19 10*3/uL (0.20-1.00); Monocytes % (A) 6.4 %; Neutrophils # (A) 2.43 10*3/uL (1.80-7.70); Neutrophils % (A) 81.9 %; RBC 1.55 10*6/uL (4.40-5.60); RDW 12.5 % (11.5-14.5); WBC 2.97 10*3/uL (4.50-10.00)
[2024-08-02 12:18] LABS: HGB 4.9 g/dL (13.0-17.0)
[2024-08-02 12:19] LABS: HCT 15.1 % (39.6-50.0)
--- NOTE | 2024-08-02 12:21 | P.GSCN ---
History of Present Illness Consult date: 08/02/24 Reason for Consult: Sub massive PE History of present illness: 68 year old gentleman presented to the ER today for shortness of breath, dizzine ss. He was being worked up for PE and having a CTA when his blood pressure dropped and he passed out in the scanner. He denies any chest pain. No previous DVT, or PE's but states family history of PE and DVT. CTA demonstrated large bilateral emboli with right ventricular strain. Case was discussed with ICU team and determined to be a candidate for thrombectomy. He does have a recent history of septal surgery but denies any leg pain. Review of Systems All systems: negative (what is mentioned in the PMH or HPI) Past Medical History Past Medical History: Osteoarthritis (OA) Additional Past Medical History / Comment(s): CURRENT: LOWER ABD PAIN. RESTLESS LEG. LOWER BACK/HIPS PAIN. History of Any Multi-Drug Resistant Organisms: None Reported Past Surgical History: Hernia Repair, Tonsillectomy Additional Past Surgical History / Comment(s): BILATERAL INGUINAL HERNIA Past Anesthesia/Blood Transfusion Reactions: Motion Sickness, Postoperative Nausea & Vomiting (PONV) Past Psychological History: No Psychological Hx Reported Past Alcohol Use History: Rare Past Drug Use History: None Reported Medications and Allergies Home Medications Medication Instructions Recorded Confirmed Type Atorvastatin Calcium 20 mg PO HS 07/09/24 08/02/24 History Cholecalciferol (Vitamin D3) 50 mcg PO DAILY 08/02/24 08/02/24 History [Vitamin D3 (50 Mcg = 2000 Iu)] Allergies Allergy/AdvReac Type Severity Reaction Status Date / Time No Known Allergies Allergy Verified 08/02/24 09:11 Surgical - Exam Vital Signs Temp Pulse Resp BP Pulse Ox 97.7 F 115 H 20 84/36 90 L 08/02/24 07:45 08/02/24 07:45 08/02/24 07:45 08/02/24 07:45 08/02/24 07:45 Patient Seen Date: 08/06/24 Patient Seen Time: 10:20 NAD, Alert and oriented x 3 PERRL, EOMI Lungs clear RRR Abdomen soft NT, ND + edema LLE and varicose veins throughout. Palpable PT pulses bilaterally. Results CTA chest- bilateral PE with right heart strain - Labs 08/02/24 07:36 08/02/24 07:36 Abnormal Lab Results - Last 24 Hours (Table) 08/02/24 08/02/24 08/02/24 Range/Units 07:36 07:36 07:36 D-Dimer 7.92 H (<0.60) mg/L FEU Sodium 135 L (137-145) mmol/L Chloride 108 H (98-107) mmol/L Carbon Dioxide 14 L (22-30) mmol/L Glucose 145 H (74-99) mg/dL Calcium 8.3 L (8.4-10.2) mg/dL Troponin I 0.048 H* (0.000-0.034) ng/mL Diabetes panel 08/02/24 Range/Units 07:36 Sodium 135 L (137-145) mmol/L Potassium 4.4 (3.5-5.1) mmol/L Chloride 108 H (98-107) mmol/L Carbon Dioxide 14 L (22-30) mmol/L BUN 18 (9-20) mg/dL Creatinine 0.81 (0.66-1.25) mg/dL Glucose 145 H (74-99) mg/dL Calcium 8.3 L (8.4-10.2) mg/dL AST 28 (17-59) U/L ALT 23 (4-49) U/L Alkaline Phosphatase 77 (38-126) U/L Total Protein 6.9 (6.3-8.2) g/dL Albumin 3.9 (3.5-5.0) g/dL Calcium panel 08/02/24 Range/Units 07:36 Calcium 8.3 L (8.4-10.2) mg/dL Albumin 3.9 (3.5-5.0) g/dL Pituitary panel 08/02/24 Range/Units 07:36 Sodium 135 L (137-145) mmol/L Potassium 4.4 (3.5-5.1) mmol/L Chloride 108 H (98-107) mmol/L Carbon Dioxide 14 L (22-30) mmol/L BUN 18 (9-20) mg/dL Creatinine 0.81 (0.66-1.25) mg/dL Glucose 145 H (74-99) mg/dL Calcium 8.3 L (8.4-10.2) mg/dL Adrenal panel 08/02/24 Range/Units 07:36 Sodium 135 L (137-145) mmol/L Potassium 4.4 (3.5-5.1) mmol/L Chloride 108 H (98-107) mmol/L Carbon Dioxide 14 L (22-30) mmol/L BUN 18 (9-20) mg/dL Creatinine 0.81 (0.66-1.25) mg/dL Glucose 145 H (74-99) mg/dL Calcium 8.3 L (8.4-10.2) mg/dL Total Bilirubin 1.0 (0.2-1.3) mg/dL AST 28 (17-59) U/L ALT 23 (4-49) U/L Alkaline Phosphatase 77 (38-126) U/L Total Protein 6.9 (6.3-8.2) g/dL Albumin 3.9 (3.5-5.0) g/dL Assessment and Plan Assessment: Acute submassive bilateral pulmonary embolism with right heart strain and hypotension Acute syncope Sinus tachycardia/atrial tachycardia/a flutter, likely related to above Acute dyspnea secondary to above Chronic varicosities in the left lower extremity with chronic edema in the left lower extremity. Plan: Discussed with ICU team and family options including catheter directed thrombectomy due to the heart strain and hypotension which all were agreeable. Will take urgently for thrombectomy and then ICU admission. Agree with heparin drip
[2024-08-02 12:22] LABS: Glucose,Whole Blood 114 mg/dL (70-110)
[2024-08-02 12:24] LABS: Glucose,Whole Blood 110 mg/dL (70-110)
--- NOTE | 2024-08-02 12:26 | P.OP ---
Date of Procedure: 08/02/24 Preoperative Diagnosis: Submassive bilateral pulmonary embolus with right heart strain and hypotension Postoperative Diagnosis: Same, chronic segmental pulmonary embolism of the left Procedure(s) Performed: Ultrasound-guided right common femoral vein access Pulmonary angiogram with selective right and left pulmonary artery angiograms Percutaneous thrombectomy with Inari flowtriever with extirpation of clot from right main pulmonary artery Percutaneous thrombectomy with Inari flowtriever with extirpation of clot from right truncus anterior Percutaneous thrombectomy with Inari flowtriever with extirpation of clot from right lobar pulmonary artery Percutaneous thrombectomy with Inari flowtriever with extirpation of clot from the left main pulmonary artery Percutaneous thrombectomy with Inari flowtriever with extirpation of the clot from the left lobar pulmonary artery Conscious sedation x 98 minutes Description of Procedure: After written and informed consent was obtained the patient all risks, benefits and complications were described patient was brought to the [facility] [employer] laid in a supine position. The area of the groins were prepped and draped in usual sterile fashion. Utilizing ultrasound guidance the right common femoral vein was located and shown to be patent without thrombus and then was accessed with a micropuncture kit and utilizing Seldinger technique an 8-Bangladeshi sheath was placed. 035 guidewire was then advanced into the IVC under fluoroscopic guidance. Track was dilated and the Inari 24-Bangladeshi sheath was placed. An angled pigtail catheter was then placed and utilizing a J-wire the heart was entered and advanced into the pulmonary artery. Pigtail catheter was then removed over the wire and a JR4 catheter was placed and the right pulmonary artery was entered and wire was placed to the main right pulmonary artery. The wire was then exchanged for an Amplatz wire in normal fashion. Patient was administered heparin at this time. A thrombectomy catheter was then advanced and pulmonary angiogram was obtained demonstrating thrombus within the right main and segmental branches as well as the left main. Mechanical thrombectomy was then performed with aspiration of multiple large clots. Aspiration was performed two times. Right pulmonary angiogram was then obtained demonstrating resolution of thrombus within the main pulmonary artery as well as the truncus anterior. Catheter was then selectively placed in the left main pulmonary artery and mechanical thrombectomy was performed 5 times. Blood was attempted to be returned but sheath failure noted unable to give back blood. Pulmonary angiogram was then obtained demonstrating complete resolution of thrombus with good filling to the outer aspects of the long on both sides. There was still some residual what appeared to be chronic thrombus in the left distal segmental branch but filling was noted to be brisk and throughout the entirety of the lung. Once completed all catheters and wires were removed. A suture was placed in the right groin after the sheath was removed for hemostasis. At the end of the procedure the patient developed some hypotension and feeling dizzy and had an episode of syncope which after a fluid bolus he returned to the normal. He had normal neurologic function throughout the entirety of the case and after his syncopal episode. Due to the blood loss and syncope we will transfuse him and obtain stat labs and transfer to ICU.
[2024-08-02] MEDS: IOPAMIDOL-370 100ML BTL INJ ONE (12:33)
[2024-08-02 12:44] LABS: Platelet Count 150 10*3/uL (140-440)
--- NOTE | 2024-08-02 13:01 | P.HPIM ---
History of Present Illness H&P Date: 08/02/24 Chief Complaint: Syncope Patient is a 68 year old male with past medical history of hyperlipidemia presented to the ED with concern for syncopal episode. Patient stated that he was walking his dog when he suddenly felt dizzy. He tried to sit down but that did not help with the symptoms. Associated with that he was experiencing nausea and left shoulder pain. He was also short of breath and had palpitations. EMS was called and the patient was brought to the hospital. Having EKG and stress test with Dr. Quiroz. He also had septoplasty for DNS 3 weeks ago. He denies CAD/atrial fibrillation/blood clots. Denies being on blood thinner. Denies fever, chills, cough, abdominal pain, vomiting, hematuria, dysuria, hematochezia, melena, headache, slurred speech, numbness, tingling, blurred vision, double vision. ED documentation reviewed. In the ED patient was treated with aspirin 324 mg, 0.9 normal saline, Heparin drip. Vitals temperature 97.7 F, IN 123 bpm, 18, BP 112/82, SpO2 96% on 2 L nasal cannula EKG independently interpreted as sinus tachycardia, rate 126 bpm, incomplete right bundle branch block, QTc 385 ms Chest CTA shows large bilateral primary pulmonary artery pulmonary emboli, some minimal right heart strain present Labs on admission show WBC 6.77, hemoglobin 14.5, platelet count 192, D-dimer 7.92, sodium 135, bicarb 14, glucose 145, troponin I 0.048 Review of systems: Pertinent positives and negatives as discussed in HPI, a complete review of systems was performed and all other systems are negative. Physical examination: Vital signs reviewed General: in acute distress, appears at stated age Derm: warm, dry, intact Head: atraumatic, normocephalic, symmetric Eyes: EOMI, anicteric sclera Mouth: no lip lesion, mucus membranes moist Cardiovascular: S1 S2 reg, no murmur Lungs: CTA bilateral, no rhonchi, no rales, no accessory muscle use Abdominal: soft, non-tender to palpation Extremities: No cyanosis, clubbing, or pedal edema. Neuro: Alert, Oriented, Gross neurological examination did not reveal any focal deficits. Psych: well appearing, appropriate affect Assessment/Plan: Patient is a 68 year old male with past medical history of hyperlipidemia presented to the ED with concern for syncopal episode. He was found to have bilateral primary pulmonary artery pulmonary emboli and was diagnosed with submassive PE. Patient admitted to internal medicine service. Active: #. Acute unprovoked submassive bilateral Pulmonary Embolism #. Acute dyspnea #. S/p Percutaneous thrombectomy D-dimer 7.92 Chest CTA shows large bilateral primary pulmonary artery pulmonary emboli, some minimal right heart strain present EKG independently interpreted as sinus tachycardia, rate 126 bpm, incomplete right bundle branch block, QTc 385 ms Started on Heparin drip Vascular surgery consulted, recommended urgent thrombectomy and ICU admission Pulmonary angiogram was obtained demonstrating thrombus within the right main and segmental branches as well as the left main Percutaneous thrombectomy, extirpation of clot from right main pulmonary artery, right truncus artery, right lobar artery, left main pulmonary artery, left lobar pulmonary artery Obtain lactic acid and venous doppler for b/l UE and LE Pulm and Critical care consulted, recommend hypercoagulable evaluation at a later stage based on his strong family history for pulmonary embolism. #. Acute blood loss anemia #. Syncopal episode post procedure At the end of the procedure the patient developed some hypotension and felt dizzy and had an episode of syncope Bolus administered Repeat Hb 4.9 Transfuse PRBC 2 units Monitor CBC, Transfuse for Hb<7 #. Troponin elevation, likelty Type II NSTEMI #. Hyperlipidemia, chronic troponin I 0.048 EKG independently interpreted as sinus tachycardia, rate 126 bpm, incomplete right bundle branch block, QTc 385 ms Start Aspirin 81 mg PO daily Resume home med Atorvastatin 20 mg PO HS Obtain echocardiogram, lipid panel, TSH, A1c Continue telemetry monitoring Cardiology consulted #. High anion gap metabolic acidosis Anion gap 13, bicarb 14 Monitor BMP #. Vitamin D deficiency, chronic Resume home med cholecalciferol 50 mcg PO daily F: 0.9 normal saline at 20 ml/hr E: Replete as required N: NPO DVT prophylaxis: Heparin drip GI prophylaxis: Famotidine 20 mg PO BID The patient is admitted with an anticipated more than 2 midnight stay for evaluation of syncope CODE STATUS: FULL CODE Discussed with: Patient Anticipated discharge place: Pending clinical course Dictation was produced using [employer] dictation software. please excuse any grammatical, word or spelling errors. Timmy Chavez MD PGY-1 IM I have seen and evaluated the patient today. Discussed with the resident and agree with the residents finding and plan as documented in the resident's note. Changes highlighted in blue font. Past Medical History Past Medical History: Osteoarthritis (OA) Additional Past Medical History / Comment(s): CURRENT: LOWER ABD PAIN. RESTLESS LEG. LOWER BACK/HIPS PAIN. History of Any Multi-Drug Resistant Organisms: None Reported Past Surgical History: Hernia Repair, Tonsillectomy Additional Past Surgical History / Comment(s): BILATERAL INGUINAL HERNIA Past Anesthesia/Blood Transfusion Reactions: Motion Sickness, Postoperative Nausea & Vomiting (PONV) Past Psychological History: No Psychological Hx Reported Past Alcohol Use History: Rare Past Drug Use History: None Reported Medications and Allergies Home Medications Medication Instructions Recorded Confirmed Type Atorvastatin Calcium 20 mg PO HS 07/09/24 08/02/24 History Cholecalciferol (Vitamin D3) 50 mcg PO DAILY 08/02/24 08/02/24 History [Vitamin D3 (50 Mcg = 2000 Iu)] Allergies Allergy/AdvReac Type Severity Reaction Status Date / Time No Known Allergies Allergy Verified 08/02/24 09:11 Physical Exam Vitals: Vital Signs Temp Pulse Resp BP Pulse Ox 08/02/24 12:25 97.5 F L 96 16 111/65 98 08/02/24 10:17 122 H 17 86/39 94 L 08/02/24 08:57 123 H 18 112/82 96 08/02/24 08:28 116 H 102/73 94 L 08/02/24 07:45 97.7 F 115 H 20 84/36 90 L Intake and Output 08/01/24 08/02/24 08/02/24 22:59 06:59 14:59 Intake Total 0 Balance 0 Intake: Blood Product 0 Unit 0 Other: Weight 127.006 kg Results CBC & Chem 7: 08/02/24 11:50 08/02/24 07:36 Labs: Abnormal Lab Results - Last 24 Hours (Table) 08/02/24 08/02/24 08/02/24 Range/Units 07:36 07:36 07:36 WBC (4.50-10.00) 10*3/uL RBC (4.40-5.60) 10*6/uL Hgb (13.0-17.0) g/dL Hct (39.6-50.0) % MCV (80.0-97.0) fL D-Dimer 7.92 H (<0.60) mg/L FEU Sodium 135 L (137-145) mmol/L Chloride 108 H (98-107) mmol/L Carbon Dioxide 14 L (22-30) mmol/L Glucose 145 H (74-99) mg/dL POC Glucose (mg/dL) (70-110) mg/dL Calcium 8.3 L (8.4-10.2) mg/dL Troponin I 0.048 H* (0.000-0.034) ng/mL 08/02/24 08/02/24 Range/Units 11:50 12:20 WBC 2.97 L (4.50-10.00) 10*3/uL RBC 1.55 L (4.40-5.60) 10*6/uL Hgb 4.9 L* D (13.0-17.0) g/dL Hct 15.1 L* (39.6-50.0) % MCV 97.4 H D (80.0-97.0) fL D-Dimer (<0.60) mg/L FEU Sodium (137-145) mmol/L Chloride (98-107) mmol/L Carbon Dioxide (22-30) mmol/L Glucose (74-99) mg/dL POC Glucose (mg/dL) 114 H (70-110) mg/dL Calcium (8.4-10.2) mg/dL Troponin I (0.000-0.034) ng/mL
[2024-08-02 15:22] LABS: Basophils # (A) 0.05 10*3/uL (0.00-0.10); Basophils % (A) 0.4 %; HCT 40.8 % (39.6-50.0); Lymphocytes # (A) 1.24 10*3/uL (0.90-5.00); Lymphocytes % (A) 9.2 %; MCH 32.1 pg (27.0-32.0); MCHC 32.8 g/dL (32.0-37.0); MCV 97.8 fL (80.0-97.0); Monocytes # (A) 0.92 10*3/uL (0.20-1.00); Monocytes % (A) 6.8 %; Neutrophils # (A) 11.17 10*3/uL (1.80-7.70); Neutrophils % (A) 83.2 %; Platelet Count 195 10*3/uL (140-440); RBC 4.17 10*6/uL (4.40-5.60); RDW 12.7 % (11.5-14.5); WBC 13.44 10*3/uL (4.50-10.00)
[2024-08-02 15:26] LABS: HGB 13.4 g/dL (13.0-17.0)
--- NOTE | 2024-08-02 15:30 | CA ---
Transthoracic Echo Report Name: Jose Luna Age: 68 Gender: M : 1955 Exam Date: 08/02/2024 13:10 Exam Location: [facility] Ht (in): 75 Wt (lb): 280 Ordering Physician: Jeff Roberts DO Attending/Referring Phys: Square Cutter Michelle Potter RDCS Procedure CPT: Indications: pe, strain Cardiac Hx: Technical Quality: Technically difficult study Contrast 1: Definity Total Dose (mL): 2 Contrast 2: Total Dose (mL): MEASUREMENTS (Male / Female) Normal Values 2D ECHO LV Diastolic Diameter PLAX 3.6 cm 4.2 - 5.9 / 3.9 - 5.3 cm LV Systolic Diameter PLAX 2.3 cm IVS Diastolic Thickness 1.1 cm 0.6 - 1.0 / 0.6 - 0.9 cm LVPW Diastolic Thickness 1.0 cm 0.6 - 1.0 / 0.6 - 0.9 cm LV Relative Wall Thickness 0.6 RV Internal Dim ED PLAX 4.3 cm LA Systolic Diameter LX 4.1 cm 3.0 - 4.0 / 2.7 - 3.8 cm LA Volume 46.0 cm??? 18 - 58 / 22 - 52 cm??? LA Volume Index 17.5 cm???/m??? 16 - 28 cm???/m??? M-MODE Aortic Root Diameter MM 3.6 cm AV Cusp Separation MM 2.9 cm DOPPLER MV Area PHT 4.0 cm??? Mitral E Point Velocity 83.9 cm/s Mitral A Point Velocity 52.3 cm/s Mitral E to A Ratio 1.6 MV Deceleration Time 190.4 ms TR Peak Velocity 252.6 cm/s TR Peak Gradient 25.5 mmHg Right Ventricular Systolic Press 30.5 mmHg FINDINGS Left Ventricle Left ventricular ejection fraction is estimated at 60-65 %. Small left ventricular cavity. Mild concentric left ventricular hypertrophy. No obvious regional wall motion abnormalities. Right Ventricle moderate right ventricular dilatation. Evidence of RV strain with Salomon sign seen Right Atrium Moderate right atrial dilatation. No right atrial thrombus or mass seen. Left Atrium Mildly increased left atrial diameter. No left atrial thrombus or mass present. Mitral Valve Mitral valve not well visualized. No mitral stenosis, regurgitation or prolapse. Aortic Valve Aortic valve not well visualized. No aortic valve stenosis or regurgitation. Tricuspid Valve Tricuspid valve not well visualized. Mild tricuspid regurgitation. Pulmonic Valve Pulmonic valve not well visualized. Pericardium No pericardial effusion. Aorta Normal size aortic root and proximal ascending aorta. CONCLUSIONS LVEF 60% Small LV cavity with mild concentric LVH. No obvious regional wall motion abnormalities. Evidence of RV strain with Salomon sign seen. Moderate RV dilatation. Mild tricuspid regurgitation No obvious left-sided valvular dysfunction appreciated Previewed by: Dr Miguel Brandt (Electronically Signed) Final Date: 02 August 2024 15:30
--- NOTE | 2024-08-02 15:31 | US ---
EXAMINATION TYPE: US venous doppler duplex LE BI DATE OF EXAM: 08/02/2024 2:47 PM COMPARISON: NONE CLINICAL INDICATION: Male, 68 years old with history of PE; Left leg swelling and pain, no h/o dvt, e xtensive PE today TECHNIQUE: The lower extremity deep venous system is examined utilizing real time linear array sonog ga with graded compression, color doppler sonography, and spectral doppler. SIDE PERFORMED: Bilateral FINDINGS: VESSELS IMAGED: Common Femoral Vein Deep Femoral Vein Greater Saphenous Vein * Femoral Vein Popliteal Vein Small Saphenous Vein * Proximal Calf Veins (* superficial vessels) Right Leg: Negative for DVT, Color Doppler imaging shows patency of the vessels. Spectral waveforms are within normal limits. Left Leg: Internal echoes that do not compress, with no flow seen, at proximal calf vein extending u p through distal popliteal vein, also GSV at CFv junction did have internal echoes that did not compr ess IMPRESSION: There is lack of flow within the proximal left calf veins extending through the distal popliteal whic h do not compress. Additionally there is echogenicity within the greater saphenous vein at the common femoral junction which does not compress. Findings are concerning for deep venous thrombosis and pos sible superficial thrombosis of the greater saphenous vein of the left lower extremity. No ultrasound evidence for deep venous thrombosis in the right lower extremity. [facility], , 08/02/2024 3:29 PM
--- NOTE | 2024-08-02 15:33 | US ---
EXAMINATION TYPE: US venous doppler duplex UE BI DATE OF EXAM: 08/02/2024 COMPARISON: NONE CLINICAL INDICATION: Male, 68 years old with history of PE; arms are asymptomatic, ordered to assess where extensive PE came from TECHNIQUE: Grayscale, color Doppler and spectral Doppler imaging of the upper extremity. SIDE PERFORMED: Bilateral VESSELS IMAGED: IJV Subclavian Vein Axilla Vein Brachial Vein(s) Radial Paired Veins Ulnar Paired Veins Cephalic Vein* Basilic Vein* (*superficial vessels) FINDINGS: Right Arm: Negative for DVT Left Arm: Negative for DVT Grayscale, color doppler, spectral doppler imaging performed of the deep veins of the upper extremiti es. IMPRESSION: No evidence for DVT. [facility], , 08/02/2024 3:31 PM
--- NOTE | 2024-08-02 16:19 | P.CRDCN ---
History of Present Illness Consult date: 08/02/24 History of present illness: HISTORY OF PRESENTING ILLNESS: Patient with past medical history of hypertension dyslipidemia obesity presented to the ER because of concerns of presyncope episode. He was walking his dog when he suddenly felt dizzy. He sat down but his symptoms did not get better. He also had shortness of breath and palpitation symptoms. He reports that he had septoplasty and DNS surgery 3 weeks ago. Denies any prior cardiovascular history. Does report that he has varicose vein, chronic left lower extremity swelling with recurrent phlebitis because of varicose vein. Admission ECG showed sinus tachycardia heart rate 126 bpm, incomplete right bundle branch block, Admission labs showed Hb 14 D-dimer 7.9 BUN 18, creatinine 0.8, lactate 3.2, tr oponin 0.04, repeat 1.6 For elevated D-dimer he had a CTA chest done which showed Doppler bilateral upper extremity negative for any DVT Doppler bilateral lower extremity no evidence of DVT in the right leg. Possible DVT and lack of compressibility in left GSV near the junction of femoral vein. Echo showed EF of 60%, moderate concentric LVH, RV dilatation with evidence of RV strain, moderate pulm hypertension. REVIEW OF SYSTEMS: 14 point review of system is negative except what is mentioned above in HPI. PHYSICAL EXAMINATION: Neck: Brisk carotid upstroke, no jugular venous distention. Lungs: Clear to auscultation. Heart: Regular rate and rhythm, S1-S2, , no murmur or rub. Abdomen: Soft nontender, positive bowel sounds. Extremities: No edema, intact distal pulses. Neuro: Alert, oritented, no focal deficits. Detailed neuro exam was not performed. ASSESSMENT: # Acute submassive bilateral PE with evidence of RV strain with high clot burden status post Inari thrombectomy # Left GSV superficial thrombosis # High suspicion for May-Thurner syndrome # Morbid obesity PLAN: Anticoagulation as per vascular surgery recommendation Recommend May-Thurner evaluation as per vascular surgery Recommend repeat echocardiogram in 3 months to evaluate RV strain Recommend outpatient stress testing if clinically indicated Check for lipids and A1c Miguel Brandt MD, FACC, RPVI Thank you for allowing [facility] to participate in this patient's care. Feel free to reach out in case of any followup questions. Past Medical History Past Medical History: Osteoarthritis (OA) Additional Past Medical History / Comment(s): CURRENT: LOWER ABD PAIN. RESTLESS LEG. LOWER BACK/HIPS PAIN. History of Any Multi-Drug Resistant Organisms: None Reported Past Surgical History: Hernia Repair, Tonsillectomy Additional Past Surgical History / Comment(s): BILATERAL INGUINAL HERNIA Past Anesthesia/Blood Transfusion Reactions: Motion Sickness, Postoperative Nausea & Vomiting (PONV) Past Psychological History: No Psychological Hx Reported Smoking Status: Never smoker Past Alcohol Use History: None Reported, Rare Past Drug Use History: None Reported - Past Family History Mother Additional Family Medical History / Comment(s): Mother had Hx of dizziness and passing out, patient does not know if it was syncope Medications and Allergies Home Medications Medication Instructions Recorded Confirmed Type Atorvastatin Calcium 20 mg PO HS 07/09/24 08/02/24 History Cholecalciferol (Vitamin D3) 50 mcg PO DAILY 08/02/24 08/02/24 History [Vitamin D3 (50 Mcg = 2000 Iu)] Allergies Allergy/AdvReac Type Severity Reaction Status Date / Time No Known Allergies Allergy Verified 08/02/24 09:11 Physical Exam Vitals: Vital Signs Temp Pulse Resp BP BP Pulse Ox 08/02/24 16:00 97.5 F L 101 H 16 81/52 97 08/02/24 15:45 97.7 F 15 101/64 97 08/02/24 15:30 96 11 L 92/62 95 08/02/24 15:00 94 18 104/67 97 08/02/24 14:30 92 14 91/59 98 08/02/24 14:00 96 15 115/84 98 08/02/24 13:50 97.7 F 87 20 91/59 08/02/24 13:40 93 12 94/75 99 08/02/24 12:55 97.7 F 93 16 94/75 98 08/02/24 12:35 97.5 F L 95 18 88/65 100 08/02/24 12:25 97.5 F L 96 16 111/65 98 08/02/24 10:17 122 H 17 86/39 94 L 08/02/24 08:57 123 H 18 112/82 96 08/02/24 08:28 116 H 102/73 94 L 08/02/24 07:45 97.7 F 115 H 20 84/36 90 L Intake and Output 08/02/24 08/02/24 08/02/24 06:59 14:59 22:59 Intake Total 849.071 Output Total 75 Balance 774.071 Intake: IV 400 Intake, IV Titration 139.071 Amount Heparin Sod,Pork in 0.45% 139.071 NaCl 25,000 unit In 0.45 % NaCl 1 250ml.bag @ 18 UNITS/KG/HR 22.861 mls/hr IV .[id number] [facility] Rx#: [id number] Blood Product 310 Rc As-1 Unit 310 [id number] Output: Urine 75 Other: Voiding Method Bedside Commode # Voids 0 0 Weight 127.006 kg 127.006 kg Results 08/02/24 15:08 08/02/24 07:36 Cardiac Enzymes 08/02/24 08/02/24 08/02/24 Range/Units 07:36 07:36 12:49 AST 28 (17-59) U/L Troponin I 0.048 H* 1.650 H* (0.000-0.034) ng/mL Coagulation 08/02/24 Range/Units 07:36 PT 11.8 (10.0-12.5) sec APTT 23.9 (22.0-30.0) sec CBC 08/02/24 08/02/24 08/02/24 Range/Units 07:36 11:50 15:08 WBC 6.77 2.97 L 13.44 H (4.50-10.00) 10*3/uL RBC 4.63 1.55 L 4.17 L (4.40-5.60) 10*6/uL Hgb 14.5 4.9 L* D 13.4 D (13.0-17.0) g/dL Hct 42.8 15.1 L* 40.8 (39.6-50.0) % Plt Count 192 150 195 (140-440) 10*3/uL Comprehensive Metabolic Panel 08/02/24 Range/Units 07:36 Sodium 135 L (137-145) mmol/L Potassium 4.4 (3.5-5.1) mmol/L Chloride 108 H (98-107) mmol/L Carbon Dioxide 14 L (22-30) mmol/L BUN 18 (9-20) mg/dL Creatinine 0.81 (0.66-1.25) mg/dL Glucose 145 H (74-99) mg/dL Calcium 8.3 L (8.4-10.2) mg/dL AST 28 (17-59) U/L ALT 23 (4-49) U/L Alkaline Phosphatase 77 (38-126) U/L Total Protein 6.9 (6.3-8.2) g/dL Albumin 3.9 (3.5-5.0) g/dL Current Medications Generic Name Dose Route Start Last Admin Trade Name Freq PRN Reason Stop Dose Admin Aspirin 81 mg 08/03/24 09:00 Aspirin 81 Mg PO DAILY [facility] Atorvastatin Calcium 20 mg 08/02/24 21:00 Atorvastatin 20 Mg Tab PO HS [facility] Cholecalciferol 50 mcg 08/03/24 09:00 Cholecalciferol 25 Mcg (1000 Iu) Tablet PO DAILY [facility] Famotidine 20 mg 08/02/24 09:00 08/02/24 09:18 Famotidine 20 Mg Tab PO Not Given BID [facility] Heparin Sodium (Porcine) 0 unit 08/02/24 08:28 Heparin Sodium 1,000 Un/Ml (10ml Vl) IV PER PROTOCOL PRN Low PTT Protocol Heparin Sodium/Sodium Chloride 250 mls @ 22.861 mls/hr 08/02/24 08:30 06/09/19 14:50 25,000 unit/ Sodium Chloride IV 18 units/kg/hr .[id number] [facility] 22.861 mls/hr Titration Protocol 18 UNITS/KG/HR Sodium Chloride 1,000 mls @ 20 mls/hr 08/02/24 08:45 08/02/24 08:56 Saline 0.9% IV 20 mls/hr .Q24H [facility] Administration Naloxone HCl 0.2 mg 08/02/24 08:34 Naloxone 0.4 Mg/Ml 1 Ml Vial IV Q2M PRN Opioid Reversal Intake and Output 08/02/24 08/02/24 08/02/24 06:59 14:59 22:59 Intake Total 849.071 Output Total 75 Balance 774.071 Intake: IV 400 Intake, IV Titration 139.071 Amount Heparin Sod,Pork in 0.45% 139.071 NaCl 25,000 unit In 0.45 % NaCl 1 250ml.bag @ 18 UNITS/KG/HR 22.861 mls/hr IV .[id number] [facility] Rx#: [id number] Blood Product 310 Rc As-1 Unit 310 [id number] Output: Urine 75 Other: Voiding Method Bedside Commode # Voids 0 0 Weight 127.006 kg 127.006 kg Patient Weight 08/03/24 06:59 Weight 127.006 kg 08/02/24 15:08 08/02/24 07:36
[2024-08-02] MEDS: IBUPROFEN 400 MG TAB PO PRN (21:27)
[2024-08-02] MEDS: ATORVASTATIN 20 MG TAB PO SCH (21:27)
[2024-08-03 06:19] LABS: Basophils # (A) 0.05 10*3/uL (0.00-0.10); Basophils % (A) 0.5 %; Eosinophils # (A) 0.08 10*3/uL (0.04-0.35); Eosinophils % (A) 0.8 %; HCT 35.9 % (39.6-50.0); HGB 12.4 g/dL (13.0-17.0); Lymphocytes # (A) 2.01 10*3/uL (0.90-5.00); Lymphocytes % (A) 20.1 %; MCH 32.5 pg (27.0-32.0); MCHC 34.5 g/dL (32.0-37.0); Mean Platelet Volume 10.1 fL (9.5-12.2); Monocytes # (A) 0.93 10*3/uL (0.20-1.00); Monocytes % (A) 9.3 %; Neutrophils # (A) 6.89 10*3/uL (1.80-7.70); Neutrophils % (A) 69.1 %; Platelet Count 191 10*3/uL (140-440); RBC 3.82 10*6/uL (4.40-5.60); WBC 9.98 10*3/uL (4.50-10.00)
[2024-08-03 06:36] LABS: ALT 20 U/L (4-49); AST 31 U/L (17-59); African American GFR (CKD) >90 (>60 ml/min/1.73 sqM); Albumin 3.5 g/dL (3.5-5.0); Alkaline Phosphatase 67 U/L (38-126); Anion Gap 8 mmol/L; Blood Urea Nitrogen 27 mg/dL (9-20); Calcium 8.3 mg/dL (8.4-10.2); Carbon Dioxide 22 mmol/L (22-30); Chloride 105 mmol/L (98-107); Glucose 106 mg/dL (74-99); Non-African American GFR(CKD) 89 (>60 ml/min/1.73 sqM); Sodium 135 mmol/L (137-145); Total Bilirubin 0.8 mg/dL (0.2-1.3); Total Protein 6.2 g/dL (6.3-8.2)
[2024-08-03] MEDS: ASPIRIN 81 MG PO SCH (08:10)
[2024-08-03] MEDS: CHOLECALCIFEROL 25 MCG (1000 IU) TABLET PO SCH (08:10)
[2024-08-03] MEDS: Apixaban Initiation Dose--VTE 5 MG TAB PO SCH (09:21)
--- NOTE | 2024-08-03 10:39 | P.PN ---
Subjective Progress Note Date: 08/03/24 HISTORY OF PRESENTING ILLNESS: Patient with past medical history of hypertension dyslipidemia obesity presented to the ER because of concerns of presyncope episode. He was walking his dog when he suddenly felt dizzy. He sat down but his symptoms did not get better. He also had shortness of breath and palpitation symptoms. He reports that he had septoplasty and DNS surgery 3 weeks ago. Denies any prior cardiovascular history. Does report that he has varicose vein, chronic left lower extremity swelling with recurrent phlebitis because of varicose vein. Admission ECG showed sinus tachycardia heart rate 126 bpm, incomplete right bundle branch block, Admission labs showed Hb 14 D-dimer 7.9 BUN 18, creatinine 0.8, lactate 3.2, troponin 0.04, repeat 1.6 For elevated D-dimer he had a CTA chest done which showed Doppler bilateral upper extremity negative for any DVT Doppler bilateral lower extremity no evidence of DVT in the right leg. Possible DVT and lack of compressibility in left GSV near the junction of femoral vein. Echo showed EF of 60%, moderate concentric LVH, RV dilatation with evidence of RV strain, moderate pulm hypertension. Progress note 08/03/2024 Patient is seen and examined at bedside this a.m. He denies any chest pain chest pressure or shortness of breath. His blood pressure and vitals are doing well. No further lightheadedness. Tachycardia has resolved Groin access that appears intact with no signs of hematoma or bleeding. PHYSICAL EXAMINATION: Neck: Brisk carotid upstroke, no jugular venous distention. Lungs: Clear to auscultation. Heart: Regular rate and rhythm, S1-S2, , no murmur or rub. Abdomen: Soft nontender, positive bowel sounds. Extremities: No edema, intact distal pulses. Neuro: Alert, oritented, no focal deficits. Detailed neuro exam was not performed. ASSESSMENT: # Acute submassive bilateral PE with evidence of RV strain with high clot burden status post Inari thrombectomy # Left GSV superficial thrombosis # High suspicion for May-Thurner syndrome # Morbid obesity Pertinent cardiac testing A1c 5.9, TSH 1.8 NT-proBNP 430, lipids still awaited PLAN: Discontinue IV heparin drip. Start Eliquis VTE dosing Recommend May-Thurner evaluation as per vascular surgery Recommend repeat echocardiogram in 3 months to evaluate RV strain Recommend outpatient stress testing if clinically indicated At this time patient is cleared from cardiovascular standpoint. Cardiology team will sign off. Please reconsult us in case of any question. Objective - Vital Signs Vital signs: Vital Signs Temp 97.5 F L 08/03/24 08:00 Pulse 77 08/03/24 10:00 Resp 15 08/03/24 10:00 BP 125/78 08/03/24 10:00 Pulse Ox 97 08/03/24 10:00 FiO2 Intake & Output 08/02/24 08/03/24 08/03/24 18:59 06:59 18:59 Intake Total 029.969 4433.134 384.142 Output Total 275 100 100 Balance 574.071 920.134 284.142 Weight 127.006 kg 129.5 kg Intake: IV 400 825 300 Sodium Chloride 0.9% 1, 825 300 000 ml @ 75 mls/hr IV . [id number] [facility] Rx#:[id number] Intake, IV Titration 139.071 195.134 84.142 Amount Heparin Sod,Pork in 0.45% 139.071 195.134 84.142 NaCl 25,000 unit In 0.45 % NaCl 1 250ml.bag @ 18 UNITS/KG/HR 22.861 mls/hr IV .[id number] [facility] Rx#: [id number] Blood Product 310 Rc As-1 Unit 310 [id number] Output: Urine 275 100 100 Other: Voiding Method Bedside Commode Urinal Urinal # Voids 0 0 1 - Labs CBC & Chem 7: 08/03/24 06:05 08/03/24 06:05 Labs: Abnormal Lab Results - Last 24 Hours (Table) 08/02/24 08/02/24 08/02/24 Range/Units 11:50 12:20 12:49 WBC 2.97 L (4.50-10.00) 10*3/uL RBC 1.55 L (4.40-5.60) 10*6/uL Hgb 4.9 L* D (13.0-17.0) g/dL Hct 15.1 L* (39.6-50.0) % MCV 97.4 H D (80.0-97.0) fL MCH (27.0-32.0) pg Immature Gran # (0.00-0.04) 10*3/uL Neutrophils # (1.80-7.70) 10*3/uL Lymphocytes # 0.32 L (0.90-5.00) 10*3/uL Monocytes # 0.19 L (0.20-1.00) 10*3/uL Eosinophils # 0.01 L (0.04-0.35) 10*3/uL APTT (22.0-30.0) sec Sodium (137-145) mmol/L BUN (9-20) mg/dL Glucose (74-99) mg/dL POC Glucose (mg/dL) 114 H (70-110) mg/dL Plasma Lactic Acid Tai (0.7-2.0) mmol/L Calcium (8.4-10.2) mg/dL Troponin I 1.650 H* (0.000-0.034) ng/mL Total Protein (6.3-8.2) g/dL Crossmatch 08/02/24 08/02/24 08/02/24 Range/Units 12:49 12:49 15:08 WBC 13.44 H (4.50-10.00) 10*3/uL RBC 4.17 L (4.40-5.60) 10*6/uL Hgb (13.0-17.0) g/dL Hct (39.6-50.0) % MCV 97.8 H (80.0-97.0) fL MCH 32.1 H (27.0-32.0) pg Immature Gran # 0.06 H (0.00-0.04) 10*3/uL Neutrophils # 11.17 H (1.80-7.70) 10*3/uL Lymphocytes # (0.90-5.00) 10*3/uL Monocytes # (0.20-1.00) 10*3/uL Eosinophils # 0.00 L (0.04-0.35) 10*3/uL APTT (22.0-30.0) sec Sodium (137-145) mmol/L BUN (9-20) mg/dL Glucose (74-99) mg/dL POC Glucose (mg/dL) (70-110) mg/dL Plasma Lactic Acid Tai 2.3 H* (0.7-2.0) mmol/L Calcium (8.4-10.2) mg/dL Troponin I (0.000-0.034) ng/mL Total Protein (6.3-8.2) g/dL Crossmatch See Detail 08/02/24 08/02/24 08/02/24 Range/Units 15:08 18:32 21:00 WBC (4.50-10.00) 10*3/uL RBC (4.40-5.60) 10*6/uL Hgb (13.0-17.0) g/dL Hct (39.6-50.0) % MCV (80.0-97.0) fL MCH (27.0-32.0) pg Immature Gran # (0.00-0.04) 10*3/uL Neutrophils # (1.80-7.70) 10*3/uL Lymphocytes # (0.90-5.00) 10*3/uL Monocytes # (0.20-1.00) 10*3/uL Eosinophils # (0.04-0.35) 10*3/uL APTT 109.3 H* (22.0-30.0) sec Sodium (137-145) mmol/L BUN (9-20) mg/dL Glucose (74-99) mg/dL POC Glucose (mg/dL) (70-110) mg/dL Plasma Lactic Acid Tai 3.2 H* 2.5 H* (0.7-2.0) mmol/L Calcium (8.4-10.2) mg/dL Troponin I (0.000-0.034) ng/mL Total Protein (6.3-8.2) g/dL Crossmatch 08/02/24 08/03/24 08/03/24 Range/Units 21:04 06:05 06:05 WBC (4.50-10.00) 10*3/uL RBC 3.82 L (4.40-5.60) 10*6/uL Hgb 12.4 L (13.0-17.0) g/dL Hct 35.9 L (39.6-50.0) % MCV (80.0-97.0) fL MCH 32.5 H (27.0-32.0) pg Immature Gran # (0.00-0.04) 10*3/uL Neutrophils # (1.80-7.70) 10*3/uL Lymphocytes # (0.90-5.00) 10*3/uL Monocytes # (0.20-1.00) 10*3/uL Eosinophils # (0.04-0.35) 10*3/uL APTT (22.0-30.0) sec Sodium 135 L (137-145) mmol/L BUN 27 H (9-20) mg/dL Glucose 106 H (74-99) mg/dL POC Glucose (mg/dL) (70-110) mg/dL Plasma Lactic Acid Tai 2.6 H* (0.7-2.0) mmol/L Calcium 8.3 L (8.4-10.2) mg/dL Troponin I (0.000-0.034) ng/mL Total Protein 6.2 L (6.3-8.2) g/dL Crossmatch 08/03/24 Range/Units 06:05 WBC (4.50-10.00) 10*3/uL RBC (4.40-5.60) 10*6/uL Hgb (13.0-17.0) g/dL Hct (39.6-50.0) % MCV (80.0-97.0) fL MCH (27.0-32.0) pg Immature Gran # (0.00-0.04) 10*3/uL Neutrophils # (1.80-7.70) 10*3/uL Lymphocytes # (0.90-5.00) 10*3/uL Monocytes # (0.20-1.00) 10*3/uL Eosinophils # (0.04-0.35) 10*3/uL APTT 120.2 H* (22.0-30.0) sec Sodium (137-145) mmol/L BUN (9-20) mg/dL Glucose (74-99) mg/dL POC Glucose (mg/dL) (70-110) mg/dL Plasma Lactic Acid Tai (0.7-2.0) mmol/L Calcium (8.4-10.2) mg/dL Troponin I (0.000-0.034) ng/mL Total Protein (6.3-8.2) g/dL Crossmatch
--- NOTE | 2024-08-03 10:57 | P.PN ---
Subjective Progress Note Date: 08/03/24 Subjective: Patient seen and examined at bedside. No acute events overnight. Denies any further shortness of breath or chest pain. Pertinent positives and negatives as discussed above, a complete review of systems was performed and all other systems are negative. Vitals Signs Reviewed. General: Nontoxic, no distress, appears at stated age Derm: Warm, dry Head: Atraumatic, normocephalic, symmetric Eyes: EOMI, no lid lag, anicteric sclera Mouth: No lip lesion, mucus membranes moist Cardiovascular: S1S2 reg, no murmur Lungs: CTA bilateral, no rhonchi, no rales, no accessory muscle use Abdominal: Soft, nontender to palpation, no guarding, no appreciable organomegaly Ext: No gross muscle atrophy, left thigh slightly greater in circumference compared to right thigh, no contractures Neuro: CN II-XI grossly intact, no focal neuro deficits Psych: Alert, oriented, appropriate affect Data Reviewed Today: Pertinent Labs: Hemoglobin 12.4, creatinine 0.83, lactate 1.8, bicarb 22, TSH 1 .81 Imaging: Echocardiogram showed LVEF 60%, evidence of RV strain, moderate RV dilatation, mild tricuspid regurgitation, venous Dopplers showed left lower extremity DVT Assessment and Plan: Active: Acute submassive PE status post thrombectomy Left lower extremity DVT Acute NSTEMI, secondary to above Dyslipidemia - Cardiology note reviewed, patient started on Eliquis 10 twice daily, outpatient follow-up - Continue atorvastatin 20 nightly - Concern for possible May Thurner syndrome, further recommendations per vascular surgery - Vascular surgery and pulmonology also following - Patient likely to be downgraded out of the ICU today Mild acute blood loss anemia, status post 1 unit of PRBCs - Hemoglobin stable Resolved: Metabolic acidosis Lactic acidosis Hypotension DVT ppx: Eliquis Code status: Full code Anticipated discharge place: Home Anticipated discharge time: Likely tomorrow Objective - Vital Signs Vital signs: Vital Signs Temp 97.5 F L 08/03/24 08:00 Pulse 77 08/03/24 10:00 Resp 15 08/03/24 10:00 BP 125/78 08/03/24 10:00 Pulse Ox 97 08/03/24 10:00 FiO2 Intake & Output 08/02/24 08/03/24 08/03/24 18:59 06:59 18:59 Intake Total 377.758 4372.134 384.142 Output Total 275 100 100 Balance 574.071 920.134 284.142 Weight 127.006 kg 129.5 kg Intake: IV 400 825 300 Sodium Chloride 0.9% 1, 825 300 000 ml @ 75 mls/hr IV . [id number] [facility] Rx#:[id number] Intake, IV Titration 139.071 195.134 84.142 Amount Heparin Sod,Pork in 0.45% 139.071 195.134 84.142 NaCl 25,000 unit In 0.45 % NaCl 1 250ml.bag @ 18 UNITS/KG/HR 22.861 mls/hr IV .[id number] [facility] Rx#: [id number] Blood Product 310 Rc As-1 Unit 310 [id number] Output: Urine 275 100 100 Other: Voiding Method Bedside Commode Urinal Urinal # Voids 0 0 1 - Labs CBC & Chem 7: 08/03/24 06:05 08/03/24 06:05 Labs: Abnormal Lab Results - Last 24 Hours (Table) 08/02/24 08/02/24 08/02/24 Range/Units 11:50 12:20 12:49 WBC 2.97 L (4.50-10.00) 10*3/uL RBC 1.55 L (4.40-5.60) 10*6/uL Hgb 4.9 L* D (13.0-17.0) g/dL Hct 15.1 L* (39.6-50.0) % MCV 97.4 H D (80.0-97.0) fL MCH (27.0-32.0) pg Immature Gran # (0.00-0.04) 10*3/uL Neutrophils # (1.80-7.70) 10*3/uL Lymphocytes # 0.32 L (0.90-5.00) 10*3/uL Monocytes # 0.19 L (0.20-1.00) 10*3/uL Eosinophils # 0.01 L (0.04-0.35) 10*3/uL APTT (22.0-30.0) sec Sodium (137-145) mmol/L BUN (9-20) mg/dL Glucose (74-99) mg/dL POC Glucose (mg/dL) 114 H (70-110) mg/dL Plasma Lactic Acid Tai (0.7-2.0) mmol/L Calcium (8.4-10.2) mg/dL Troponin I 1.650 H* (0.000-0.034) ng/mL Total Protein (6.3-8.2) g/dL Crossmatch 08/02/24 08/02/24 08/02/24 Range/Units 12:49 12:49 15:08 WBC 13.44 H (4.50-10.00) 10*3/uL RBC 4.17 L (4.40-5.60) 10*6/uL Hgb (13.0-17.0) g/dL Hct (39.6-50.0) % MCV 97.8 H (80.0-97.0) fL MCH 32.1 H (27.0-32.0) pg Immature Gran # 0.06 H (0.00-0.04) 10*3/uL Neutrophils # 11.17 H (1.80-7.70) 10*3/uL Lymphocytes # (0.90-5.00) 10*3/uL Monocytes # (0.20-1.00) 10*3/uL Eosinophils # 0.00 L (0.04-0.35) 10*3/uL APTT (22.0-30.0) sec Sodium (137-145) mmol/L BUN (9-20) mg/dL Glucose (74-99) mg/dL POC Glucose (mg/dL) (70-110) mg/dL Plasma Lactic Acid Tai 2.3 H* (0.7-2.0) mmol/L Calcium (8.4-10.2) mg/dL Troponin I (0.000-0.034) ng/mL Total Protein (6.3-8.2) g/dL Crossmatch See Detail 08/02/24 08/02/24 08/02/24 Range/Units 15:08 18:32 21:00 WBC (4.50-10.00) 10*3/uL RBC (4.40-5.60) 10*6/uL Hgb (13.0-17.0) g/dL Hct (39.6-50.0) % MCV (80.0-97.0) fL MCH (27.0-32.0) pg Immature Gran # (0.00-0.04) 10*3/uL Neutrophils # (1.80-7.70) 10*3/uL Lymphocytes # (0.90-5.00) 10*3/uL Monocytes # (0.20-1.00) 10*3/uL Eosinophils # (0.04-0.35) 10*3/uL APTT 109.3 H* (22.0-30.0) sec Sodium (137-145) mmol/L BUN (9-20) mg/dL Glucose (74-99) mg/dL POC Glucose (mg/dL) (70-110) mg/dL Plasma Lactic Acid Tai 3.2 H* 2.5 H* (0.7-2.0) mmol/L Calcium (8.4-10.2) mg/dL Troponin I (0.000-0.034) ng/mL Total Protein (6.3-8.2) g/dL Crossmatch 08/02/24 08/03/24 08/03/24 Range/Units 21:04 06:05 06:05 WBC (4.50-10.00) 10*3/uL RBC 3.82 L (4.40-5.60) 10*6/uL Hgb 12.4 L (13.0-17.0) g/dL Hct 35.9 L (39.6-50.0) % MCV (80.0-97.0) fL MCH 32.5 H (27.0-32.0) pg Immature Gran # (0.00-0.04) 10*3/uL Neutrophils # (1.80-7.70) 10*3/uL Lymphocytes # (0.90-5.00) 10*3/uL Monocytes # (0.20-1.00) 10*3/uL Eosinophils # (0.04-0.35) 10*3/uL APTT (22.0-30.0) sec Sodium 135 L (137-145) mmol/L BUN 27 H (9-20) mg/dL Glucose 106 H (74-99) mg/dL POC Glucose (mg/dL) (70-110) mg/dL Plasma Lactic Acid Tai 2.6 H* (0.7-2.0) mmol/L Calcium 8.3 L (8.4-10.2) mg/dL Troponin I (0.000-0.034) ng/mL Total Protein 6.2 L (6.3-8.2) g/dL Crossmatch 08/03/24 Range/Units 06:05 WBC (4.50-10.00) 10*3/uL RBC (4.40-5.60) 10*6/uL Hgb (13.0-17.0) g/dL Hct (39.6-50.0) % MCV (80.0-97.0) fL MCH (27.0-32.0) pg Immature Gran # (0.00-0.04) 10*3/uL Neutrophils # (1.80-7.70) 10*3/uL Lymphocytes # (0.90-5.00) 10*3/uL Monocytes # (0.20-1.00) 10*3/uL Eosinophils # (0.04-0.35) 10*3/uL APTT 120.2 H* (22.0-30.0) sec Sodium (137-145) mmol/L BUN (9-20) mg/dL Glucose (74-99) mg/dL POC Glucose (mg/dL) (70-110) mg/dL Plasma Lactic Acid Tai (0.7-2.0) mmol/L Calcium (8.4-10.2) mg/dL Troponin I (0.000-0.034) ng/mL Total Protein (6.3-8.2) g/dL Crossmatch
--- NOTE | 2024-08-03 13:07 | P.PN ---
Subjective Progress Note Date: 08/03/24 On 08/02/2024, the patient is seen in the emergency department for acute pulmonary embolism. The patient has a strong family history of pulm embolism. I have treated this patient's mother approximately 6 years ago for an acute pulmonary embolism. The patient was doing well and the patient while will walking his dog today, felt acute shortness of breath and he felt also dizzy. He came into the Emergency Department and [address] scan of the chest in the emergency department, the patient felt dizzy and near the brief episode of syncope. He is free of any chest pain. No pleurisy. No hemoptysis. He has chronic varicose veins and edema in lower extremities specially on the left. No previous history of DVT or pulmonary embolism. D-dimer is at 7.5. Troponin is at 0.04. proBNP level is at 430. CT angiogram of the chest was done and the patient has evidence of large bilateral pulmonary artery emboli and some minimal right ventricular strain has been reported. Case was discussed with vascular surgeon the patient is going to undergo a clot thrombectomy. The ventricles of 6.7 with a hemoglobin of 14.5 and a platelet count of 192. Rest of the electrolytes show a component of non-anion gap metabolic acidosis with a serum bicarb of 14. Sodium is at 135. BUN is 18 with a creatinine of 0.8. LFTs are normal. Patient is IV Heparin. The EKG Showed a Atrial Flutters/Tachycardia Initially and the Patient Continues to Be in Sinus Tachycardia at This Point. The Patient Has an Incomplete Right Bundle Branch Block Pattern. No History of Travel. The Patient Has Undergone Recent Sinus Surgery Approximately 3 Weeks Ago. On 08/03/2024, the patient is being seen for a follow-up. The patient underwent a clot thrombectomy for submassive bilateral pulmonary embolism and RV strain and hypotension and episodes of dizziness and near syncope. Clots were removed successfully. During the procedure, the patient had some blood loss due to technical difficulties and malfunctioning of the catheter device. There was a concern of a drop in hemoglobin and the patient was given a unit of packed RBC. The surgical wound site over the right groin area is dry clean and intact and the patient has no evidence of any hematoma. Respiratory status is stable. Tachycardia is improved and the patient is currently on room air oxygen with a pulse ox of 94%. He remains on IV heparin and the patient will be switched to anticoagulation with Eliquis. Meanwhile, his echocardiogram showed a normal LV function. The patient has an ejection fraction of 60 to 65%. No obvious wall motion abnormalities. Evidence of RV strain and moderate RV dilatation. Right ventricular systolic pressure was estimated to be at 30. Doppler of the lower extremity was also done and the patient was suspected to have a DVT and possible superficial thrombosis of the great saphenous vein of the left lower extremity. There is also echogenicity within the greater saphenous vein at the common femoral junction. His hemoglobin today is at 4.4. Electrolytes are normal, BUN is 27 with a creatinine of 0.8. No other complaints for now. No shortness of breath. No chest pain. No pleurisy. No hemoptysis. Objective - Vital Signs Vital signs: Vital Signs Temp 97.5 F L 08/03/24 08:00 Pulse 72 08/03/24 09:00 Resp 13 08/03/24 09:00 BP 124/68 08/03/24 09:00 Pulse Ox 96 08/03/24 09:00 FiO2 Intake & Output 08/02/24 08/03/24 08/03/24 18:59 06:59 18:59 Intake Total 766.700 2787.134 309.142 Output Total 275 100 100 Balance 574.071 920.134 209.142 Weight 127.006 kg 129.5 kg Intake: IV 400 825 225 Sodium Chloride 0.9% 1, 825 225 000 ml @ 75 mls/hr IV . [id number] [facility] Rx#:[id number] Intake, IV Titration 139.071 195.134 84.142 Amount Heparin Sod,Pork in 0.45% 139.071 195.134 84.142 NaCl 25,000 unit In 0.45 % NaCl 1 250ml.bag @ 18 UNITS/KG/HR 22.861 mls/hr IV .[id number] [facility] Rx#: [id number] Blood Product 310 Rc As-1 Unit 310 [id number] Output: Urine 275 100 100 Other: Voiding Method Bedside Commode Urinal Urinal # Voids 0 0 1 - Exam The patient appeared well nourished and normally developed. Vital signs as documented. The patient is To the [facility] by Nasal Cannula. BMI 35.0. Head exam is unremarkable. No scleral icterus or corneal arcus noted. Neck is without jugular venous distension, thyromegaly, or carotid bruits. Carotid upstrokes are brisk bilaterally. Lungs are clear to auscultation and percussion. Cardiac exam reveals the PMI to be normally sized and situated. Rhythm is regular. First and second heart sounds normal. No murmurs, rubs or gallops. Patient has tachycardia. Abdominal exam reveals normal bowel sounds, no masses, no organomegaly and no aortic enlargement. Extremities show an edematous left lower extremity and varicose veins compared to the right and both femoral and pedal pulses are normal. Examination of the skin revealed no evidence of significant rashes, suspicious appearing nevi or other concerning lesions. Neurologically, the patient is awake and alert and the patient does not have any focal neurological deficit. Cranial nerves are essentially intact. - Labs CBC & Chem 7: 08/03/24 06:05 08/03/24 06:05 Labs: Abnormal Lab Results - Last 24 Hours (Table) 08/02/24 08/02/24 08/02/24 Range/Units 11:50 12:20 12:49 WBC 2.97 L (4.50-10.00) 10*3/uL RBC 1.55 L (4.40-5.60) 10*6/uL Hgb 4.9 L* D (13.0-17.0) g/dL Hct 15.1 L* (39.6-50.0) % MCV 97.4 H D (80.0-97.0) fL MCH (27.0-32.0) pg Immature Gran # (0.00-0.04) 10*3/uL Neutrophils # (1.80-7.70) 10*3/uL Lymphocytes # 0.32 L (0.90-5.00) 10*3/uL Monocytes # 0.19 L (0.20-1.00) 10*3/uL Eosinophils # 0.01 L (0.04-0.35) 10*3/uL APTT (22.0-30.0) sec Sodium (137-145) mmol/L BUN (9-20) mg/dL Glucose (74-99) mg/dL POC Glucose (mg/dL) 114 H (70-110) mg/dL Plasma Lactic Acid Tai (0.7-2.0) mmol/L Calcium (8.4-10.2) mg/dL Troponin I 1.650 H* (0.000-0.034) ng/mL Total Protein (6.3-8.2) g/dL Crossmatch 08/02/24 08/02/24 08/02/24 Range/Units 12:49 12:49 15:08 WBC 13.44 H (4.50-10.00) 10*3/uL RBC 4.17 L (4.40-5.60) 10*6/uL Hgb (13.0-17.0) g/dL Hct (39.6-50.0) % MCV 97.8 H (80.0-97.0) fL MCH 32.1 H (27.0-32.0) pg Immature Gran # 0.06 H (0.00-0.04) 10*3/uL Neutrophils # 11.17 H (1.80-7.70) 10*3/uL Lymphocytes # (0.90-5.00) 10*3/uL Monocytes # (0.20-1.00) 10*3/uL Eosinophils # 0.00 L (0.04-0.35) 10*3/uL APTT (22.0-30.0) sec Sodium (137-145) mmol/L BUN (9-20) mg/dL Glucose (74-99) mg/dL POC Glucose (mg/dL) (70-110) mg/dL Plasma Lactic Acid Tai 2.3 H* (0.7-2.0) mmol/L Calcium (8.4-10.2) mg/dL Troponin I (0.000-0.034) ng/mL Total Protein (6.3-8.2) g/dL Crossmatch See Detail 08/02/24 08/02/24 08/02/24 Range/Units 15:08 18:32 21:00 WBC (4.50-10.00) 10*3/uL RBC (4.40-5.60) 10*6/uL Hgb (13.0-17.0) g/dL Hct (39.6-50.0) % MCV (80.0-97.0) fL MCH (27.0-32.0) pg Immature Gran # (0.00-0.04) 10*3/uL Neutrophils # (1.80-7.70) 10*3/uL Lymphocytes # (0.90-5.00) 10*3/uL Monocytes # (0.20-1.00) 10*3/uL Eosinophils # (0.04-0.35) 10*3/uL APTT 109.3 H* (22.0-30.0) sec Sodium (137-145) mmol/L BUN (9-20) mg/dL Glucose (74-99) mg/dL POC Glucose (mg/dL) (70-110) mg/dL Plasma Lactic Acid Tai 3.2 H* 2.5 H* (0.7-2.0) mmol/L Calcium (8.4-10.2) mg/dL Troponin I (0.000-0.034) ng/mL Total Protein (6.3-8.2) g/dL Crossmatch 08/02/24 08/03/24 08/03/24 Range/Units 21:04 06:05 06:05 WBC (4.50-10.00) 10*3/uL RBC 3.82 L (4.40-5.60) 10*6/uL Hgb 12.4 L (13.0-17.0) g/dL Hct 35.9 L (39.6-50.0) % MCV (80.0-97.0) fL MCH 32.5 H (27.0-32.0) pg Immature Gran # (0.00-0.04) 10*3/uL Neutrophils # (1.80-7.70) 10*3/uL Lymphocytes # (0.90-5.00) 10*3/uL Monocytes # (0.20-1.00) 10*3/uL Eosinophils # (0.04-0.35) 10*3/uL APTT (22.0-30.0) sec Sodium 135 L (137-145) mmol/L BUN 27 H (9-20) mg/dL Glucose 106 H (74-99) mg/dL POC Glucose (mg/dL) (70-110) mg/dL Plasma Lactic Acid Tai 2.6 H* (0.7-2.0) mmol/L Calcium 8.3 L (8.4-10.2) mg/dL Troponin I (0.000-0.034) ng/mL Total Protein 6.2 L (6.3-8.2) g/dL Crossmatch 08/03/24 Range/Units 06:05 WBC (4.50-10.00) 10*3/uL RBC (4.40-5.60) 10*6/uL Hgb (13.0-17.0) g/dL Hct (39.6-50.0) % MCV (80.0-97.0) fL MCH (27.0-32.0) pg Immature Gran # (0.00-0.04) 10*3/uL Neutrophils # (1.80-7.70) 10*3/uL Lymphocytes # (0.90-5.00) 10*3/uL Monocytes # (0.20-1.00) 10*3/uL Eosinophils # (0.04-0.35) 10*3/uL APTT 120.2 H* (22.0-30.0) sec Sodium (137-145) mmol/L BUN (9-20) mg/dL Glucose (74-99) mg/dL POC Glucose (mg/dL) (70-110) mg/dL Plasma Lactic Acid Tai (0.7-2.0) mmol/L Calcium (8.4-10.2) mg/dL Troponin I (0.000-0.034) ng/mL Total Protein (6.3-8.2) g/dL Crossmatch Assessment and Plan Plan: Acute submassive bilateral pulmonary embolism, unprovoked. Positive family history for pulmonary embolism. The patient encountered syncope. The patient is not atrial tachycardia/sinus tachycardia with mild RV strain as noted on the CTA of the chest. The patient underwent clot thrombectomy and the patient is currently on room air oxygen. No significant respiratory distress. Tachycardia is improved. The patient remains on IV heparin. Transfused 2 units of packed RBC. Acute syncope, brief with no significant cardiac arrhythmias. The patient has normal mentation and his neurologic exam is nonfocal and is awake and alert. Sinus tachycardia/atrial tachycardia/a flutter, likely related to above, improved None anion gap metabolic acidosis, improved Troponin leak secondary to above Acute dyspnea secondary to above, improved Chronic varicosities in the left lower extremity with chronic edema in the left lower extremity. Suspected left lower extremity DVT and superficial thrombophlebitis. Please refer to the ultrasound of the left lower extremity. Plan Stopped IV heparin and switch the patient to Eliquis 10 mg p.o. twice a day Echocardiogram was noted and the patient has LV dilatation, PA pressure is not significant elevated. Nevertheless, the patient had an abnormal troponin. Clinically stable. Oxygenation stable. Will deserve a hypercoagulable evaluation at a later stage based on his strong family history for pulmonary embolism. The patient can be transferred to medical surgical floor. Will continue to follow Time with Patient: Greater than 30
[2024-08-03 13:34] LABS: Chol/HDL Ratio 2.59 Ratio; LDL Cholesterol,Calculated 62.7 mg/dL (0.0-131.0)
[2024-08-04 05:54] LABS: Basophils # (A) 0.04 10*3/uL (0.00-0.10); Basophils % (A) 0.6 %; Eosinophils # (A) 0.27 10*3/uL (0.04-0.35); Eosinophils % (A) 3.9 %; HCT 31.9 % (39.6-50.0); HGB 10.7 g/dL (13.0-17.0); Lymphocytes % (A) 23.3 %; MCH 31.6 pg (27.0-32.0); MCHC 33.5 g/dL (32.0-37.0); MCV 94.1 fL (80.0-97.0); Mean Platelet Volume 10.2 fL (9.5-12.2); Monocytes # (A) 0.62 10*3/uL (0.20-1.00); Neutrophils % (A) 62.8 %; Platelet Count 155 10*3/uL (140-440); RBC 3.39 10*6/uL (4.40-5.60); RDW 12.9 % (11.5-14.5); WBC 6.86 10*3/uL (4.50-10.00)
[2024-08-04 06:29] LABS: African American GFR (CKD) >90 (>60 ml/min/1.73 sqM); Anion Gap 5 mmol/L; Blood Urea Nitrogen 21 mg/dL (9-20); Calcium 8.4 mg/dL (8.4-10.2); Carbon Dioxide 24 mmol/L (22-30); Chloride 107 mmol/L (98-107); Glucose 87 mg/dL (74-99); Non-African American GFR(CKD) >90 (>60 ml/min/1.73 sqM); Potassium 4.2 mmol/L (3.5-5.1); Sodium 136 mmol/L (137-145)
[2024-08-04 09:20] VITALS: TEMP 97.8
--- NOTE | 2024-08-04 11:00 | P.PN ---
Subjective Progress Note Date: 08/04/24 Principal diagnosis: Submassive pulmonary embolism with right heart strain Patient is seen and examined today as a follow-up. He remains in the ICU as overflow. He is status post percutaneous pulmonary thrombectomy. He is currently on room air with oxygen saturation 98 to 99%. States that he has been up and ambulating to the bathroom 2 or 3 times which he states does wear him out of bed. Denies any chest pain. He was transition to oral anticoagulation, currently on Eliquis. Objective - Vital Signs Vital signs: Vital Signs Temp 97.8 F 08/04/24 08:00 Pulse 105 H 08/04/24 08:00 Resp 17 08/04/24 09:00 BP 113/62 08/04/24 09:00 Pulse Ox 98 08/04/24 09:00 FiO2 Intake & Output 08/03/24 08/04/24 08/04/24 18:59 06:59 18:59 Intake Total 384.142 240 Output Total 225 275 0 Balance 159.142 -275 240 Weight 129.3 kg Intake: IV 300 Sodium Chloride 0.9% 1, 300 000 ml @ 75 mls/hr IV . [id number] [facility] Rx#:[id number] Intake, IV Titration 84.142 Amount Heparin Sod,Pork in 0.45% 84.142 NaCl 25,000 unit In 0.45 % NaCl 1 250ml.bag @ 18 UNITS/KG/HR 22.861 mls/hr IV .[id number] [facility] Rx#: [id number] Oral 240 Output: Urine 225 275 0 Other: Voiding Method Urinal Urinal # Voids 1 # Bowel Movements 1 1 - Exam General appearance: The patient is alert, oriented, appears in no acute distress. HET: Head is normocephalic and atraumatic. Pupils are equal and reactive. Neck: Supple. Heart: Regular. Lungs: Equal expansion, normal respiratory effort. Abdomen: Soft, nontender, nondistended. Extremities: Normal skin color and turgor. Neurological: No focal deficits. Strength and sensation are grossly intact. - Labs CBC & Chem 7: 08/04/24 05:33 08/04/24 05:33 Labs: Abnormal Lab Results - Last 24 Hours (Table) 08/04/24 08/04/24 Range/Units 05:33 05:33 RBC 3.39 L (4.40-5.60) 10*6/uL Hgb 10.7 L (13.0-17.0) g/dL Hct 31.9 L (39.6-50.0) % Sodium 136 L (137-145) mmol/L BUN 21 H (9-20) mg/dL Assessment and Plan Assessment: 1. Status post percutaneous pulmonary thrombectomy with [place] 2. Submassive bilateral pulmonary embolus with right heart strain, unprovoked Plan: Continue with current management. Activity as tolerated. Apparently patient will follow-up with hematology as an outpatient secondary to family history of blood clots. Continue Eliquis as ordered. Patient can follow-up with vascular surgery in 1 to 2 weeks. Recommend outpatient repeat echocardiogram with cardiology within 1 to 2 weeks. Thank you for this consultation, patient is cleared from vascular surgery for discharge. The impression and plan of care has been dictated as directed. Dr. Medina I performed a history and examination of this patient, discussed the same with the dictator. I agree with the dictator's note ,documented as a scribe. Any additional findings or plans will be noted.
--- NOTE | 2024-08-04 11:54 | P.DS ---
Providers Date of admission: 08/02/24 08:37 Expected date of discharge: 08/04/24 Attending physician: Pj Harrison Consults: 08/02/24 08:34 Consult Physician Stat Consulting Provider: Michael Adams Consult Reason/Comments: pe Do you want consulting provider notified?: Yes Consult Physician Urgent Consulting Provider: Juan Singh Consult Reason/Comments: pe, tachycardia,? ekos Do you want consulting provider notified?: Yes 08/02/24 09:17 Consult Physician Urgent Consulting Provider: Deven Manning Consult Reason/Comments: pe, ? clot thrombectomy Do you want consulting provider notified?: Yes Primary care physician: Jayson Corcoran MD Hospital Course: Discharge diagnosis: Acute unprovoked submassive bilateral Pulmonary Embolism with right heart strain Acute dyspnea S/p Percutaneous thrombectomy with Inari Acute blood loss anemia Syncopal episode post procedure Troponin elevation, likelty Type II NSTEMI Hyperlipidemia, chronic High anion gap metabolic acidosis Vitamin D deficiency, chronic Hospital Course: Patient is a 68 year old male with past medical history of hyperlipidemia presented to the ED with concern for syncopal episode. Patient stated that he was walking his dog when he suddenly felt dizzy. He tried to sit down but that did not help with the symptoms. Associated with that he was experiencing nausea and left shoulder pain. He was also short of breath and had palpitations. Initial workup in the ED showed vitals temperature 97.7 F, [place] 123 bpm, 18, BP 112/82, SpO2 96% on 2 L nasal cannula. EKG independently interpreted as sinus tachycardia, rate 126 bpm, incomplete right bundle branch block, QTc 385 ms. Chest CTA shows large bilateral primary pulmonary artery pulmonary emboli, some minimal right heart strain present. At that point patient was started on heparin drip. Patient then underwent percutaneous thrombectomy with vascular surgery, extirpation of clot from right main pulmonary artery, right truncus artery, right lobar artery, left main pulmonary artery, left lobar artery. He was then monitored in the ICU. Further workup showed echocardiogram showed LVEF 60%, evidence of RV strain, moderate RV dilatation, mild tricuspid regurgitation. Doppler bilateral upper extremity negative for any DVT. Doppler bilateral lower extremity no evidence of DVT in the right leg. Possible DVT and lack of compressibility in left GSV near the junction of femoral vein. Consider May-Thurner evaluation and hypercoagulability testing. Repeat echocardiogram with cardiology in 1 to 2 weeks. Patient has been optimized for discharge. Patient seen at bedside today and is feeling good and excited about discharge. Patient will be discharged today and is given a script for Eliquis 10 mg twice a day for 11 doses and then 5 mg twice daily Patient is given a handout for pulmonary embolism and is advised to be compliant with medications. 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 Vital signs are reviewed and stable General: no distress, appears at stated age Derm: warm, dry, intact Head: atraumatic, normocephalic, symmetric Eyes: EOMI, anicteric sclera Mouth: no lip lesion, mucus membranes moist Cardiovascular: S1 S2 reg, no murmur Lungs: CTA bilateral, no rhonchi, no rales, no accessory muscle use Abdominal: soft, non-tender to palpation Extremities: No cyanosis, clubbing, or pedal edema. Neuro: Alert, Oriented, Gross neurological examination did not reveal any focal deficits. Psych: well appearing, appropriate affect A total of 30 minutes of time were spent preparing this complex discharge summary. Patient was discharged on 08/04/24 at 0942. Dictation was produced using [employer] dictation software. please excuse any grammatical, word or spelling error Timmy Chavez MD PGY-1 IM I have seen and evaluated the patient today. Discussed with the resident and agree with the residents finding and plan as documented in the resident's note. Changes highlighted in blue font. Patient Condition at Discharge: Stable Plan - Discharge Summary Discharge Rx Participant: Yes New Discharge Prescriptions: New Apixaban [Eliquis Starter Pack (for VTE)] 5 mg PO DIRECTED 30 Days #1 each Continue Atorvastatin Calcium 20 mg PO HS Cholecalciferol (Vitamin D3) [Vitamin D3 (50 Mcg = 2000 Iu)] 50 mcg PO DAILY Discharge Medication List Atorvastatin Calcium 20 mg PO HS 07/09/24 [History] Cholecalciferol (Vitamin D3) [Vitamin D3 (50 Mcg = 2000 Iu)] 50 mcg PO DAILY 08/02/24 [History] Apixaban [Eliquis Starter Pack (for VTE)] 5 mg PO DIRECTED 30 Days #1 each 08/04/24 [Rx] Follow up Appointment(s)/Referral(s): Rigoberto Luke [STAFF PHYSICIAN] - 1 Week Jayson Corcoran MD [Primary Care Provider] - 1 Week Deven Manning DO [STAFF PHYSICIAN] - 1 Week (1 to 2 weeks) None,Stated [REFERRING] - 1-2 days Micah Quiroz MD [STAFF PHYSICIAN] - 1 Week Patient Instructions/Handouts: Pulmonary Embolism (GEN) Discharge Disposition: HOME SELF-CARE
[2024-08-04 12:48] VITALS: BP 110/71
[2024-08-04 13:06] VITALS: PULSE 101; RESP 19
--- NOTE | 2024-08-04 15:21 | P.PN ---
Subjective Progress Note Date: 08/04/24 Principal diagnosis: Acute pulmonary embolism On 08/02/2024, the patient is seen in the emergency department for acute pulmonary embolism. The patient has a strong family history of pulm embolism. I have treated this patient's mother approximately 6 years ago for an acute pulmonary embolism. The patient was doing well and the patient while will walking his dog today, felt acute shortness of breath and he felt also dizzy. He came into the Emergency Department and [address] scan of the chest in the emergency department, the patient felt dizzy and near the brief episode of syncope. He is free of any chest pain. No pleurisy. No hemoptysis. He has chronic varicose veins and edema in lower extremities specially on the left. No previous history of DVT or pulmonary embolism. D-dimer is at 7.5. Troponin is at 0.04. proBNP level is at 430. CT angiogram of the chest was done and the patient has evidence of large bilateral pulmonary artery emboli and some minimal right ventricular strain has been reported. Case was discussed with vascular surgeon the patient is going to undergo a clot thrombectomy. The ventricles of 6.7 with a hemoglobin of 14.5 and a platelet count of 192. Rest of the electrolytes show a component of non-anion gap metabolic acidosis with a serum bicarb of 14. Sodium is at 135. BUN is 18 with a creatinine of 0.8. LFTs are normal. Patient is IV Heparin. The EKG Showed a Atrial Flutters/Tachycardia Initially and the Patient Continues to Be in Sinus Tachycardia at This Point. The Patient Has an Incomplete Right Bundle Branch Block Pattern. No History of Travel. The Patient Has Undergone Recent Sinus Surgery Approximately 3 Weeks Ago. On 08/03/2024, the patient is being seen for a follow-up. The patient underwent a clot thrombectomy for submassive bilateral pulmonary embolism and RV strain and hypotension and episodes of dizziness and near syncope. Clots were removed successfully. During the procedure, the patient had some blood loss due to technical difficulties and malfunctioning of the catheter device. There was a concern of a drop in hemoglobin and the patient was given a unit of packed RBC. The surgical wound site over the right groin area is dry clean and intact and the patient has no evidence of any hematoma. Respiratory status is stable. Tachycardia is improved and the patient is currently on room air oxygen with a pulse ox of 94%. He remains on IV heparin and the patient will be switched to anticoagulation with Eliquis. Meanwhile, his echocardiogram showed a normal LV function. The patient has an ejection fraction of 60 to 65%. No obvious wall motion abnormalities. Evidence of RV strain and moderate RV dilatation. Right ventricular systolic pressure was estimated to be at 30. Doppler of the lower extremity was also done and the patient was suspected to have a DVT and possible superficial thrombosis of the great saphenous vein of the left lower extremity. There is also echogenicity within the greater saphenous vein at the common femoral junction. His hemoglobin today is at 4.4. Electrolytes are normal, BUN is 27 with a creatinine of 0.8. No other complaints for now. No shortness of breath. No chest pain. No pleurisy. No hemoptysis. Seen today on 08/04/2024, patient is status post clot thrombectomy for submassive bilateral pulmonary embolism and RV strain associated with hypertension dizziness and near syncope. Patient is doing great today, asymptomatic, patient is now on Eliquis, and discharge planning is in progress. No cough no wheezing no shortness of breath no chest pain. Patient is on room air, labs were reviewed his WBC count is 6.8 hemoglobin 10.7 electrolytes are normal renal profile is normal Objective - Vital Signs Vital signs: Vital Signs Temp 97.8 F 08/04/24 08:00 Pulse 101 H 08/04/24 13:00 Resp 19 08/04/24 13:00 BP 110/71 08/04/24 11:00 Pulse Ox 99 08/04/24 12:00 FiO2 Intake & Output 08/03/24 08/04/24 08/04/24 18:59 06:59 18:59 Intake Total 384.142 240 Output Total 225 275 0 Balance 159.142 -275 240 Weight 129.3 kg Intake: IV 300 Sodium Chloride 0.9% 1, 300 000 ml @ 75 mls/hr IV . [id number] JOSH Rx#:[id number] Intake, IV Titration 84.142 Amount Heparin Sod,Pork in 0.45% 84.142 NaCl 25,000 unit In 0.45 % NaCl 1 250ml.bag @ 18 UNITS/KG/HR 22.861 mls/hr IV .[id number] JOSH Rx#: [id number] Oral 240 Output: Urine 225 275 0 Other: Voiding Method Urinal Urinal Urinal # Voids 1 # Bowel Movements 1 1 - Exam General: Reveals 68-year-old white male in no distress, on room air Derm: No rashes Head: Atraumatic, normocephalic, symmetric Eyes: EOMI, no lid lag, anicteric sclera Mouth: No lip lesion, mucus membranes moist Cardiovascular: S1S2 reg, no murmur Lungs: Clear lungs bilaterally no rhonchi no wheezes Abdominal: Soft, nontender to palpation, no guarding, no appreciable organomegaly Ext: No clubbing edema or cyanosis left thigh is a bit more swollen compared to right thigh Neuro: Alert oriented x 3 no focal deficit Psych: Alert, oriented, appropriate affect - Labs CBC & Chem 7: 08/04/24 05:33 08/04/24 05:33 Labs: Abnormal Lab Results - Last 24 Hours (Table) 08/04/24 08/04/24 Range/Units 05:33 05:33 RBC 3.39 L (4.40-5.60) 10*6/uL Hgb 10.7 L (13.0-17.0) g/dL Hct 31.9 L (39.6-50.0) % Sodium 136 L (137-145) mmol/L BUN 21 H (9-20) mg/dL Assessment and Plan Assessment: Impression: Acute submassive pulmonary embolism status post thrombectomy Acute left lower extremity DVT History of dyslipidemia Hypotension secondary to acute pulmonary embolism Recommendation: Agree with discharge planning Agree with Eliquis Follow-up on outpatient basis patient to remain on Eliquis/lifetime Time with Patient: Less than 30
--- NOTE | 2024-08-06 16:14 | IR ---
EXAMINATION TYPE: IR transcath infusion therapy DATE OF EXAM: 08/02/2024 12:38 PM COMPARISON: Pre Operative Images if available both CT/MRI or plain film CLINICAL INDICATION: Male, 68 years old with history of Bilateral PE, 30m/103DAP, rt gr v figure 8sut ure.; TECHNIQUE: IR transcath infusion therapy, multiple fluoroscopic images provided for procedure. DAP: 103 mGym2 Gycm2 uGym2 cGycm2 or equivalent. FINDINGS: IMPRESSION: 1. Report was generated for administrative purposes only. 2. Please see the operative/procedural note for further details. [facility], , 08/06/2024 4:12 PM
== END 2024-08-04 13:32 | disposition home or self-care (01) | DRG 163 ==
LOC: EC 07:31 → 3SCARD 08:37 → 2SICU 09:30
PROVIDERS: ADMIT Student in an Organized Health Care Education/Training Program; ATTEND Student in an Organized Health Care Education/Training Program
PROC: B31T1ZZ Fluoroscopy of Left Pulmonary Artery using Low Osmolar Contrast (ICD-10-PCS; 2024-08-02)
PROC: B31S1ZZ Fluoroscopy of Right Pulmonary Artery using Low Osmolar Contrast (ICD-10-PCS; 2024-08-02)
PROC: 02CR3ZZ Extirpation of Matter from Left Pulmonary Artery, Percutaneous Approach (ICD-10-PCS; principal; 2024-08-02 09:57)
PROC: 02CQ3ZZ Extirpation of Matter from Right Pulmonary Artery, Percutaneous Approach (ICD-10-PCS; 2024-08-02 09:57)
PROC: 02CP3ZZ Extirpation of Matter from Pulmonary Trunk, Percutaneous Approach (ICD-10-PCS; 2024-08-02 09:57)
PROC: 30233N1 Transfusion of Nonautologous Red Blood Cells into Peripheral Vein, Percutaneous Approach (ICD-10-PCS; 2024-08-02 09:57)
DX: I26.99 Other pulmonary embolism without acute cor pulmonale (principal); I21.A1 Myocardial infarction type 2; E87.20 Acidosis, unspecified; D62 Acute posthemorrhagic anemia; I47.19 Other supraventricular tachycardia; I27.20 Pulmonary hypertension, unspecified; I82.4Y2 Acute embolism and thrombosis of unspecified deep veins of left proximal lower extremity; E66.01 Morbid (severe) obesity due to excess calories; I10 Essential (primary) hypertension; G25.81 Restless legs syndrome; I48.92 Unspecified atrial flutter; E55.9 Vitamin D deficiency, unspecified; Z68.35 Body mass index [BMI] 35.0-35.9, adult; E78.5 Hyperlipidemia, unspecified; I95.89 Other hypotension; I83.92 Asymptomatic varicose veins of left lower extremity; Z83.2 Family history of diseases of the blood and blood-forming organs and certain disorders involving the immune mechanism
CPT/HCPCS: 36415; 37184; 37185; 71275; 75743; 76937; 80048; 80053; 80061; 83036; 83605; 83735; 83880; 84443; 84484; 85025; 85379; 85610; 85730; 86850; 86900; 86901; 86920; 93005; 93306; 93970; 96361; 96365; 96366; 99291